=== PATIENT | male | born 1970 | race Two or more races ===

== ENCOUNTER 2024-09-22 10:31 | Outpatient (AMB) | payer OTHER, SELFPAY ==
--- NOTE | 2024-09-22 10:54 | MHC.OFFWIV ---
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 Patient Tobacco Use Status: Current everyday Tobacco user Allergies No Known Allergies [No Known Allergies*] Allergy (Unverified 09/22/24 11:03) Do you need a note to return to daycare/school/sports/work: No HPI HPI Comments History of Present Illness Details History of Present Illness - The patient is a 54-year-old male presenting with a painful right inguinal hernia. - This condition involves a right groin swelling that appeared about two weeks ago without any preceding trauma. - The hernia becomes more prominent upon standing and reduces in size when the patient lies down. - The patient reports intermittent pain, which is exacerbated by standing. - Pt does not have a PCP, hasn't had this issue previously. Physical Exam General: Cooperative, healthy appearing, comfortable, no acute distress and well developed Orientation: Patient oriented x3 Limitations: No limitations Head: Normal to inspection Ears: Hearing grossly normal bilaterally Nose: Normal External nose present Face and sinus: Normal facial exam Eyes: Appearance normal, both eyes and all related structures Neck: Normal visual inspection and Yes full ROM Respiratory: Normal respiratory effort and able to speak in complete sentences. : right inguinal hernia noted, ttp, non reducible fully Skin: No rashes or lesions noted Neuro: Patient oriented x3 Extremities: Normal to inspection PFSH Social History Patient Tobacco Use Status: Current everyday Tobacco user Review of Systems Const All systems reviewed & are unremarkable except as noted in HPI and below Physical Exam Vital Signs: Last Vital Signs Pulse 60 09/22/24 11:02 BP 118/86 09/22/24 11:02 Pulse Ox 98 09/22/24 11:02 Oxygen Delivery Method Room Air 09/22/24 11:02 Assessment & Plan Assessment & Plan (1) Right inguinal hernia: Code(s): K40.90 - Unilateral inguinal hernia, without obstruction or gangrene, not specified as recurrent Plan: VSS, pt well appearing but as right inguinal hernia is progressively more painful and TTP and urgent evaluation of the inguinal hernia is warranted due to the presence of pain and its persistence over two weeks, which may suggest possible incarceration or strangulation. I have advised an immediate visit to the emergency room for further evaluation and imaging, potentially an ultrasound, to assess the necessity of surgical intervention. The patient has been informed about the complications that could arise from a non-reducible hernia, such as blocking intestinal blood supply, and the importance of getting urgent care. It is crucial to confirm the current state of the hernia and rule out any possible emergencies requiring intervention. Called [facility] [place] ED with valdemar, spoke with Marcelino 11:30am Patient was informed and verbally consented to the use of an ambient scribe for clinic note documentation during this visit. Coding Level of Care Code New Pt Level 5 (73788) Diagnoses Right inguinal hernia K40.90
[2024-09-22 11:02] VITALS: BP 118/86; PULSE 60; O2SAT 98
== END 2024-09-22 11:42 | disposition home or self-care (01) ==
PROVIDERS: Visit Provider Physician Assistant
DX: K40.90 Unilateral inguinal hernia, without obstruction or gangrene, not specified as recurrent (principal)

== ENCOUNTER → 2024-09-22 10:31 | Outpatient (BNVA) | payer OTHER, SELFPAY | PROVIDERS: Visit Provider Physician Assistant ==

== ENCOUNTER 2024-09-22 11:53 | Emergency (ER) | payer OTHER, SELFPAY ==
--- NOTE | ~2024-09-22 | CT_ITS ---
CLINICAL HISTORY: Right inguinal hernia pain. incacerated? CT ABDOMEN AND PELVIS WITH CONTRAST Comparison: None Findings: No consolidation or effusion. No acute abnormalities in the solid organs, gallbladder or abdominal aorta. 2 mm nonobstructing right intrarenal calculus. Tiny nonspecific left renal cortical hypodensity. No large calcified gallstone. No bowel obstruction, pneumoperitoneum, or pneumatosis. No ascites. No significant mesenteric or paracolic edema. Appendix is not identified with certainty. No significant inflammatory changes are seen in its expected location. Urinary bladder unremarkable. The prostate appears mildly enlarged. Multiple pelvic phleboliths. No evidence for bowel containing inguinal hernia at the time of scanning. Multiple nonspecific nonenlarged bilateral inguinal lymph nodes. No acute fracture. IMPRESSION: 1. No bowel containing inguinal hernia identified at the time of scanning. 2. No obstructive or acute inflammatory changes in the gastrointestinal and genitourinary tracts. 3. Nonobstructing punctate right intrarenal calculus. 4. Mild prostatomegaly. This document has been electronically signed by: Maricruz Berger DO on 09/22/2024 17:08:30
[2024-09-22 12:02] VITALS: BP 129/72; PULSE 66; RESP 16; TEMP 37; O2SAT 100; BMI 25.1
[2024-09-22 12:32] LABS: MANUAL DIFF FLAG NO
--- NOTE | 2024-09-22 12:32 | ED_ITS ---
HPI - General Adult General Chief complaint: Abdominal Pain Stated complaint: hernia Time Seen by Provider: 09/22/24 16:46 Source: patient Mode of arrival: ambulatory Limitations: no limitations History of Present Illness ED Provider: JESSICA CERVANTES PA-C HPI narrative: 54 year-old male with surgical history significant for appendectomy presents to the ED with complaints of right groin pain x3 weeks. He reports intermittent discomfort to right groin region x3 weeks. Pain is primarily on coughing and standing for prolonged periods of time. He will occasionally notice a blulge with certain movements. 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 Patient denies history of similar symptoms. He was evaluated at today and was advised to come to the ED to r/o incarcerated hernia. No hx of hernias or hernia repair. Denies urinary symptoms, penile discharge/lesions, scrotal pain or swelling, flank pain, abdominal pain, N/V/D, fever, chills, chest pain, SOB. Related Data Previous Rx's ?Medication ?Instructions ?Recorded ibuprofen 600 mg tablet 600 mg PO Q8H PRN pain (scale 09/22/24 score 4-6) #30 tabs Allergies Allergy/AdvReac Type Severity Reaction Status Date / Time No Known Allergies Allergy Verified 09/22/24 12:03 [No Known Allergies*] Review of Systems 2 Review of Systems: Yes all other systems are reviewed and are negative PMFSH Past Medical History Attestation statement: The following information was validated with the patient. Source: old records reviewed and nursing notes reviewed Social History Social History Unable to assess alcohol history related to: Unknown Patient Tobacco Use Status: Current everyday Tobacco user Smoked in Last 30 Days: No Use of substances other than those prescribed or required for medical reasons: Unknown Advance Directives: No Advance Directives Information Provided: No Do you have a plan to hurt others: No Plan Physical Exam ED Vital Signs: Vital Signs - 24 hr 09/22/24 12:02 09/22/24 16:17 09/22/24 17:36 Temperature 98.6 F 97.0 F 97.0 F Pulse Rate 66 55 55 Respiratory Rate 16 18 18 Blood Pressure 129/72 134/71 134/71 Pulse Oximetry 100 98 98 Oxygen Delivery Method Room Air Room Air Room Air BMI result Body Mass Index 25.1 Vitals signs stable. General: Well appearing, in no acute distress. Skin: Warm, dry, intact. No rashes or lesions. Head: Normocephalic, atraumatic. EENT: Hearing is intact b/l. Conjunctiva clear. Sclera is anicteric. Neck: Supple without LAD. Cardiac: Chest wall symmetric. RRR. Lungs: Normal respiratory effort without accessory muscle use. CTA bilaterally. Abdomen: Abdomen soft, nondistended, bowel sounds present in all 4 quadrants. no tenderness to palpation. no rebound or guarding. no inguinal LAD. mildly ttp along right inguinal fold, no obvious mass/ bulge noted at rest or with bearing down. 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 no noted penile lesions or swelling. no discharge from urethral meatus. testicles with normal lie, no noted swelling or erythema. no tenderness. Ext: Upper and lower extremities atraumatic, without tenderness, deformity, swelling or erythema. Neuro: AOx3. Normal speech. Course Course Course Narrative: RME: 54-year-old male sent by primary care provider to rule out incarcerated hernia. Patient states right lower groin pain and swelling for the past 3 week that is worse in the past 3 days on movement. Patient was referred by primary care provider. Patient will be evaluated in the ED. Charge nurse made aware. Labs CT scan ordered Reevaluation(s) Reevaluation #1: 4663 - cbc without leukocytosis or left shift. H&H above transfusion threshold. No electrolyte abnormalities. Renal function WNL. Liver enzymes WNL. UA negative for infection. CT a/p shows no bowel containing inguinal hernia, no inflammatory changes in the GI or tracts, nonobstructing punctate right infrarenal calculus, mild prostatomegaly. Patient treated with Toradol for pain with good effect. > likely small hernia. advised to f/u with general surgery. referral provided. Patient has remained stable throughout ED visit today. Discussed worrisome signs and symptoms and when to return to the ED. All questions answered at this time. Patient is agreeable with disposition and stable for discharge. Medications Administered Discontinued Medications Generic Name Dose Route Start Last Admin Trade Name Freq PRN Reason Stop Dose Admin Iohexol 100 ml 09/22/24 16:48 09/22/24 16:49 Iohexol 350 Mg/Ml 100 Ml Infus..Btl IV 09/22/24 16:49 85 ml ONCE ONE Administration Ketorolac Tromethamine 15 mg 09/22/24 16:56 09/22/24 17:03 Ketorolac Tromethamine 15 Mg/Ml Vial IVPUSH 09/22/24 16:57 15 mg ONCE ONE Administration Medical Decision Making Medical Decision Making [facility] Narrative: 54 year-old male with surgical history significant for appendectomy presents to the ED with complaints of right groin pain x3 weeks. patient is well appearing and in NAD. sitting comfortably on the exam bed. Abdomen soft, nondistended, bowel sounds present in all 4 quadrants. no tenderness to palpation. no rebound or guarding. no inguinal LAD. mildly ttp along right inguinal fold, no obvious mass/ bulge noted at rest or with bearing down. 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 no noted penile lesions or swelling. no discharge from urethral meatus. testicles with normal lie, no noted swelling or erythema. no tenderness. Differential diagnosis consists of inguinal hernia, incarcerated hernia, strangulated hernia, UTI, abscess, muscle strain/sprain. unlikely orchitis, varicocele, epididymitis, STD Labs, UA and CT a/p ordered in triage. Plan to review. toradol ordered for discomfort. will re-evaluate. Differential Diagnosis Differential Diagnoses: The differential diagnosis associated with the presentation includes As above Admission/Observation Not indicated Lab Data [facility] Lab Attestation statement: I reviewed the patient's lab results. As above 09/22/24 12:19 09/22/24 12:19 Labs: Lab Results 09/22/24 Range/Units 12:19 WBC 8.1 (4.8-10.8) X10*3/uL RBC 4.28 L (4.60-5.80) X10*6/uL Hgb 12.9 L (14.0-18.0) g/dl Hct 37.7 L (42.0-52.0) % MCV 88.1 (80.0-98.0) fL MCH 30.1 (27.0-33.0) pg MCHC 34.2 (31.0-36.0) g/dl RDW 12.5 (11.0-16.0) % Plt Count 238 (160-400) X10*3/uL MPV 10.1 (9.4-12.4) fL Immature Gran % (Auto) 0.2 (0.0-0.4) % Neut % (Auto) 53.8 (45-73) % Lymph % (Auto) 31.9 (20-40) % [place] % (Auto) 8.4 (2-11) % Eos % (Auto) 5.3 H (0-4) % Baso % (Auto) 0.4 (0-2) % Lymph # (Auto) 2.6 (1.2-4.9) X10*3/uL [place] # (Auto) 0.7 (0.1-1.2) X10*3/uL Eos # (Auto) 0.4 (0.0-0.4) X10*3/uL Baso # (Auto) 0.0 (0.0-0.2) X10*3/uL Abs Immat Gran (auto) 0.02 (0.00-0.03) X10*3/uL Absolute Neuts (auto) 4.4 (2.0-8.3) x10*3/uL Absolute Nucleated RBC 0.000 (0.0-0.012) X10*3/uL Nucleated RBC % (auto) 0.0 (0.0-0.2) /100WBC Sodium 139 (135-145) mmol/L Potassium 4.9 (3.3-5.1) mmol/L Chloride 104 (96-108) mmol/L Carbon Dioxide 30 H (22-29) mmol/L Anion Gap 10 L (12-20) BUN 9 (9-16) mg/dL Creatinine 0.92 (0.5-1.4) mg/dL Estim Creat Clear Calc 96.6 Estimated GFR > 60 Random Glucose 89 (60-115) mg/dL Lactic Acid 1.4 (0.5-2.0) mmol/L Calcium 9.4 (8.4-10.2) mg/dL Total Bilirubin 0.4 (0.0-1.0) mg/dL AST 29 (5-37) U/L ALT 21 (0-40) U/L Alkaline Phosphatase 73 (39-117) U/L Total Protein 7.4 (6.5-8.0) g/dL Albumin 4.0 (3.5-5.0) g/dL Urine Color Yellow Urine Appearance Clear Urine pH >= 9.0 (5.0-9.0) Ur Specific [place] 1.015 (1.005-1.025) Urine Protein Negative (Neg-Trace) mg/dL Urine Glucose (UA) Negative (Negative) mg/dL Urine Ketones Negative (Negative) mg/dL Urine Blood Negative (Negative) Urine Nitrite Negative (Negative) Ur Leukocyte Esterase Negative (Negative) Independent Interpretation I performed an independent interpretation of an: CT Scan Interpretation: CT abdomen/pelvis with no evidence of bowel containing inguinal hernia Radiology Impression Discussion of test interpretation with radiology: I have reviewed the radiologist's reading. Radiologist Impression: Ordering Physician: Marcelino Feldman Date of Service: 09/22/24 Procedure(s): CT abdomen pelvis w IV con Accession Number(s): [id number] cc: Marcelino Feldman; Physician,None ~ Report Number: [id number]: Total DLP = 460.00 mGy-cm CLINICAL HISTORY: Right inguinal hernia pain. incacerated? CT ABDOMEN AND PELVIS WITH CONTRAST Comparison: None Findings: No consolidation or effusion. No acute abnormalities in the solid organs, gallbladder or abdominal aorta. 2 mm nonobstructing right intrarenal calculus. Tiny nonspecific left renal cortical hypodensity. No large calcified gallstone. No bowel obstruction, pneumoperitoneum, or pneumatosis. No ascites. No significant mesenteric or paracolic edema. Appendix is not identified with certainty. No significant inflammatory changes are seen in its expected location. Urinary bladder unremarkable. The prostate appears mildly enlarged. Multiple pelvic phleboliths. No evidence for bowel containing inguinal hernia at the time of scanning. Multiple nonspecific nonenlarged bilateral inguinal lymph nodes. No acute fracture. IMPRESSION: 1. No bowel containing inguinal hernia identified at the time of scanning. 2. No obstructive or acute inflammatory changes in the gastrointestinal and genitourinary tracts. 3. Nonobstructing punctate right intrarenal calculus. 4. Mild prostatomegaly. This document has been electronically signed by: Maricruz Berger DO on 09/22/2024 17:08:30 External Record Review External record reviewed: Inpatient record Prescription Management I considered prescription management with: Pain Medication (ibuprofen) Social Determinants Patient?s care significantly limited by Social Determinants of Health including: Other Social Determinant of Health Critical Care Time Critical Care Time Critical Care Time: No Discharge Plan Discharge Clinical Impression: Right inguinal hernia Patient Disposition: Home, Self-Care Instructions: Inguinal Hernia (ED) Additional Instructions: You were evaluated in the ED today for right groin pain. Your exam is concerning for possible inguinal hernia. Your blood work is reassuring. Your urine does not demonstrate infection. The CT scan of your abdomen does not demonstrate any bowel containing hernia. You may take anti-inflammatory such as Motrin or Aleve. Please follow up with general surgery. You have been provided with a referral. Call them to establish care. They will not call you. Return with any new or worsening symptoms. In the case of an emergency call 911. Prescriptions: New ibuprofen 600 mg tablet 600 mg PO Q8H PRN (Reason: pain (scale score 4-6)) Qty: 30 0RF Referrals: [facility] [facility] [Provider Group] - 5 days (inguinal hernia) Physician,None [Primary Care Provider] - Interventions: ED Discharge Assessment Last Done: 09/22/24 17:36 Discharge Date/Time: 09/22/24 17:49 Print Language: Tongan
[2024-09-22 12:34] LABS: Basophils Percent Auto 0.4 % (0-2); Eosinophils Absolute Auto 0.4 X10*3/uL (0.0-0.4); Eosinophils Percent Auto 5.3 % (0-4); Hematocrit 37.7 % (42.0-52.0); Hemoglobin 12.9 g/dl (14.0-18.0); Imm Gran Abs Auto 0.02 X10*3/uL (0.00-0.03); Imm Gran Pct Auto 0.2 % (0.0-0.4); Lymphocytes Absolute Auto 2.6 X10*3/uL (1.2-4.9); Lymphocytes Percent Auto 31.9 % (20-40); Mean Corpuscular HGB Conc 34.2 g/dl (31.0-36.0); Mean Corpuscular Hemoglobin 30.1 pg (27.0-33.0); Mean Corpuscular Volume 88.1 fL (80.0-98.0); Mean Platelet Volume 10.1 fL (9.4-12.4); Monocytes Absolute Auto 0.7 X10*3/uL (0.1-1.2); Monocytes Percent Auto 8.4 % (2-11); Neutrophils Absolute Auto 4.4 x10*3/uL (2.0-8.3); Neutrophils Percent Auto 53.8 % (45-73); Platelet Count 238 X10*3/uL (160-400); Red Blood Count 4.28 X10*6/uL (4.60-5.80); Red Cell Distribution Width 12.5 % (11.0-16.0); White Blood Count 8.1 X10*3/uL (4.8-10.8)
[2024-09-22 12:35] LABS: Appearance Urine Clear; Color Urine Yellow; Glucose Urine UA Negative (Negative); Leukocyte Esterase Urine Negative (Negative); Nitrite Urine Negative (Negative); PH >= 9.0 (5.0-9.0); Specific Gravity - Urine 1.015 (1.005-1.025); Urine Blood Negative (Negative); Urine Ketones Negative (Negative); Urine Protein Negative (Neg-Trace)
[2024-09-22 12:49] LABS: Lactic Acid 1.4 mmol/L (0.5-2.0)
[2024-09-22 12:51] LABS: Alanine Aminotransferase 21 U/L (0-40); Alkaline Phosphatase 73 U/L (39-117); Anion Gap 10 (12-20); Aspartate Amino Transferase 29 U/L (5-37); Bilirubin Total 0.4 mg/dL (0.0-1.0); Blood Urea Nitrogen 9 mg/dL (9-16); Calcium 9.4 mg/dL (8.4-10.2); Carbon Dioxide 30 mmol/L (22-29); Chloride 104 mmol/L (96-108); Creatinine Clr Calc Pharmacy 96.6; Estimated Glomerular Filt Rate > 60; Glucose Random 89 mg/dL (60-115); Potassium 4.9 mmol/L (3.3-5.1); Sodium 139 mmol/L (135-145); Total Protein 7.4 g/dL (6.5-8.0)
[2024-09-22 16:17] VITALS: BP 134/71; PULSE 55; RESP 18; TEMP 36.1; O2SAT 98
[2024-09-22] MEDS: iohexoL 350 MG/ML 100 ML INFUS..BTL IV (16:49)
[2024-09-22] MEDS: Ketorolac Tromethamine 15 MG/ML VIAL IVPUSH (17:03)
[2024-09-22 17:36] VITALS: BP 134/71; PULSE 55; RESP 18; TEMP 36.1; O2SAT 98
== END 2024-09-22 17:49 | disposition home or self-care (01) ==
PROVIDERS: Physician Assistant; Emergency Provider Emergency Medicine
DX: K40.90 Unilateral inguinal hernia, without obstruction or gangrene, not specified as recurrent (principal); R10.31 Right lower quadrant pain; Z79.899 Other long term (current) drug therapy
CPT/HCPCS: 36415; 74177; 80053; 81003; 83605; 85025; 96374; 99284; J1885; Q9967

== ENCOUNTER → 2024-09-22 12:03 | Outpatient (BNV) | payer OTHER, SELFPAY | PROVIDERS: Emergency Provider Emergency Medicine; Visit Provider Radiology Diagnostic Radiology | DX: N20.0 Calculus of kidney (principal) | CPT/HCPCS: 74177 ==

== ENCOUNTER 2024-10-19 14:20 | Outpatient (AMB) | payer OTHER, SELFPAY ==
--- NOTE | 2024-10-19 14:30 | A.OFFPC_ITS ---
Vital Signs 10/19/24 14:32 Height 5 ft 9.29 in Weight 175 lb 8 oz BMI 25.7 BP 100/60 Blood Pressure Location Lt brachial Position Sitting Pulse 74 Pulse Source Pulse Oximeter Temp 97.1 F Temp Source Temporal Artery Scan Pulse Oximetry (%) 98 Oxygen Delivery Method Room Air Intake Visit Reasons: establish care Intake Note: Patient is a new patient here to establish care for Hernia. Transferring care from unknown. Medical records have not been requested and have not received. Online Content Coordinator Required: No Lead Sustainability Specialist: Not Required per policy Accompanied by: Self / Same As Patient Allergies No Known Allergies [No Known Allergies*] Allergy (Verified 10/19/24 14:46) Medication List - Last Reconciled 10/19/24 by YUNIER Vang ibuprofen 600 mg PO Q8H PRN Tobacco use date assessed: 10/19/24 Dental Screening Dental Screen Date: 10/19/24 Did you have a dental visit in the last 12 months?: No Did you have a dental problem in the last 6 months where you did not have access to dental care?: No Was dental information given to patient?: Patient declined HPI establish care HPI Details Previous PCP: He does not need Last visit:n/a Last PE:n/a Specialist:General surgery OBGYN:n/a Past medical history: Hemorrhoids, heart burn, right groin hernia, kidney stones Past surgical history: appendix removal at a young age Medications: ibuprofen 600mg Family HX: mother of cancer in her 40s, started in her breast then metastasize to head, sister has htn Problem: The patient is a 54-year-old male presenting with a right inguinal hernia. He reports the hernia as being present for several weeks, with burning sensations noted earlier in the day and persisting for weeks. A CT scan indicated a slightly swollen prostate, and he has been referred to general surgery for further evaluation. The patient has a history of hemorrhoids, managed previously but still problematic, occasionally requiring manual reduction. He experiences constipation, often needing extended time for bowel movements, linked to inadequate water and fiber intake. The patient has a past surgical history of appendectomy and has experienced kidney stones. There is a familial history of cancer, and he mentions that his sister has elevated blood pressure. The patient lacks a primary care physician and seeks further management. 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 1. Little interest or pleasure in doing things: not at all 2. Feeling down, depressed, or hopeless: not at all 3. Trouble falling or staying asleep, or sleeping too much: not at all 4. Feeling tired or having little energy: not at all 5. Poor appetite or overeating: not at all 6. Feeling bad about yourself - or that you are a failure or have let yourself or your family down: not at all 7. Trouble concentrating on things, such as reading the newspaper or watching television: not at all 8. Moving or speaking so slowly that other people could have noticed. Or the opposite - being so fidgety or restless that you have been moving around a lot more than usual: not at all 9. Thoughts that you would be better off or of hurting yourself in some way: not at all Total score: 0 Depression Screening Interpretation: Negative Depression Screening Done: Yes 01854 - PHQ-9 Billing: Yes Source: Developed by Drs. Fredy Talamantes, Roberta Augustine, Ludwin Catherine and colleagues, with an educational jose from [employer]. Thrive Questionnaire Date Thrive assessed: 10/19/24 I am a: Patient What is your living situation today?: I have a steady place to live Within the past 12 months, did the food you bought not last and you didn't have the money to get more?: Never true Within the past 12 months, did you worry whether your food would run out before you got money to buy more?: Never true Do you have trouble paying for medicines?: No Do you have trouble getting transportation to medical appointments?: No Do you have trouble paying your heating and electricity bill?: No Do you have trouble taking care of your child, family member or friend?: No Do you have trouble with day-to-day activities such as bathing, preparing meals, shopping, managing finances, etc.?: No Are you currently unemployed and looking for a job?: No Are you interested in more education?: No Please select the resources that you would like help with: None Currently or been in a relationship where the following occur: No concerns reported THRIVE Score: 0 AUDIT C Alcohol Use Questionnaire (AUDIT-C) 1. How often do you have a drink containing alcohol?: Monthly or less 2. How many drinks containing alcohol do you have on a typical day when you are drinking?: 3 or 4 3. How often do you have six or more drinks on one occasion?: Never Total Score: 2 NATHAN-7 AMB Questionnaire NATHAN-7 Date NATHAN - 7 assessed: 10/19/24 Feeling nervous, anxious, or on edge: 0 = Not at all Not being able to stop or control worryin = Not at all Worrying too much about different things: 0 = Not at all Trouble relaxin = Not at all Being so restless that it is hard to sit still: 0 = Not at all Becoming easily annoyed or irritable: 0 = Not at all Feeling afraid as if something awful might happen: 0 = Not at all Total NATHAN-7 score (0-4 normal; 5-9 mild; 10-14 moderate; 15-21 severe): 0 Source: Developed by Drs. Fredy Talamantes, Roberta Augustine, Ludwin Catherine and colleagues, with an educational jose from [employer]. NATHAN-7 Assessment Billing NATHAN-7 Assessment Tool: NATHAN-7 Assessment 04281 Review of Systems Const Denies headache(s) Eyes Denies loss of vision ENT Denies vertigo, Denies dizziness, Denies headache(s) and Denies sore throat Card Denies chest pain, Denies leg edema and Denies lightheadedness Resp Denies cough, Denies hemoptysis and Denies wheezing GI Denies abdominal pain, Denies melena, Reports constipation, Denies diarrhea and Denies vomiting Denies dysuria, Denies urinary frequency, Denies urinary urgency and Reports other (Right groin hernia) Musc Denies arthralgias, Denies joint swelling, Denies numbness, Reports radiating pain into limb (From right groin into inner thigh) and Denies tingling Neuro Denies Abnormal speech present, Denies behavioral changes, Denies vertigo, Denies dizziness, Denies headache(s), Denies loss of vision, Denies memory loss, Denies numbness and Denies tingling Psych Denies anxiety, Denies behavioral changes, Denies depression, Denies memory loss and Denies panic attacks Ron/Lymph Denies easy bleeding and Denies easy bruising Aller/Immun Denies wheezing Physical exam (Primary Care) Vital Signs: Last Vital Signs Temp 97.1 F 10/19/24 14:32 Pulse 74 10/19/24 14:32 BP 100/60 10/19/24 14:32 Pulse Ox 98 10/19/24 14:32 Oxygen Delivery Method Room Air 10/19/24 14:32 BMI result Body Mass Index 25.7 Tobacco/Smoking Status: Tobacco use Status Tobacco use date assessed 10/19/24 10/19/24 14:39 Patient Tobacco Use Status Never used Tobacco 10/19/24 14:40 Tobacco use type 10/19/24 14:39 e-Cigarette/Vaping Use Never Used 10/19/24 14:40 PHQ-9: PHQ-9 Score PHQ-9: Total score 0 10/19/24 14:48 Depression Screening Interpretation: Negative Thrive Assessment: Date of Thrive Assessment Date Thrive assessed 10/19/24 10/19/24 14:39 Currently or been in a relationship where the following occur: No concerns reported Const General: healthy appearing, no acute distress, alert and awake Nutritional Appearance: well nourished Orientation/consciousness: oriented to person, oriented to place and oriented to time HENMT Ears: TM's normal bilaterally General nose exam: Normal nasal mucous membranes and turbinates present Eyes Conjunctivae: conjunctivae normal Sclerae: sclerae normal Pupils: Equal, round and reactive pupils present Neck Neck: Yes no lymphadenopathy and Yes no JVD Thyroid: Thyroid normal Carotids: no bruits Resp Effort & Inspection: normal respiratory effort and not tachypneic Auscultation: no crackles, no rales, no rhonchi and no wheezes Cardio Rate: regular rate Rhythm: regular rhythm Heart sounds: no murmurs and normal S1 and S2 GI Palpation (GI): Soft to palpation, nontender, no hepatomegaly and no splenomegaly Auscultation: normal bowel sounds General: Yes no CVA tenderness Scrotum: inguinal hernia on the right Back/Spine/Pelvis Back: no CVA tenderness Skin General skin exam: no rashes or lesions noted and dry skin Neuro General: oriented to person, oriented to place and oriented to time Cranial nerves: Yes Equal, round and reactive pupils present Speech: No Abnormal speech present Gait exam (Neuro): Normal gait present Motor exam (neuro): no tremor noted Extrem Right upper extremity: full ROM Left upper extremity: full ROM Right lower extremity: full ROM; no edema Left lower extremity: full ROM; no edema Psych Mental Status: mental status grossly normal Speech and movement: Normal speech and movement present Affect: normal affect Attitude: cooperative Thought process: Normal thought process present Coding Level of Care Code New Pt Level 4 (26670) Diagnoses Preoperative clearance Z01.818 Hemorrhoids, unspecified hemorrhoid type K64.9 Hemorrhoid type: unspecified Heartburn R12 Right inguinal hernia K40.90 Constipation, unspecified constipation type K59.00 Constipation type: unspecified constipation type Additional Codes PHQ-9 - 08076 - PHQ-9 Billing: Yes ([id number]) NATHAN-7 Assessment Billing - NATHAN-7 Assessment Tool: NATHAN-7 Assessment 91384 ([id number]) Time Spent (min) 41 Assessment & Plan Assessment & Plan (1) Preoperative clearance: Code(s): Z01.818 - Encounter for other preprocedural examination Category: Medical Plan: The patient is in need of clearance for right groin hernia. Will order labs and ekg to further evaluate the patient status. Explained to the patient that if his ekg is normal and his labs are fairly wnl normal limits, he could be cleared for his hernia surgery. (2) Hemorrhoids: Code(s): K64.9 - Unspecified hemorrhoids Category: Medical Qualifiers: Hemorrhoid type: unspecified Qualified Code(s): K64.9 - Unspecified hemorrhoids Plan: Recurrent, has been treated conservatively by manually pushing back the hemorrhoid into the rectum and applying preparation H cream for discomfort. Encouraged increasing fluids and dietary fiber (3) Heartburn: Code(s): R12 - Heartburn Category: Medical Plan: Do not eat meals or drink carbonated beverages within 3 hr of bedtime Decrease the amount of fried, fatty, and spicy foods to decrease gastric acid p roduction Raise the head of the bed using 4 to 6-inch blocks, especially if nocturnal symptoms are present Lose weight if indicated; avoid tight-fitting clothing, especially around the waist Avoid foods that relax the Lower esophageal sphincter (chocolate, peppermint, high-fat foods etc.,) (4) Right inguinal hernia: Code(s): K40.90 - Unilateral inguinal hernia, without obstruction or gangrene, not specified as recurrent Category: Medical Plan: Right groin reducible lump pain radiating in right inner thigh. No increase in pain area and the swelling has not gotten bigger, per patient. Awaiting surgical intervention. Reinforced weight limit. (5) Constipation: Code(s): K59.00 - Constipation, unspecified Category: Medical Qualifiers: Constipation type: unspecified constipation type Qualified Code(s): K59.00 - Constipation, unspecified Plan Increase fiber in diet (fruits/vegetables 4-5 servings daily) Increase fluid intake and decrease caffeine/energy drinks (may cause mild dehydration) Encouraged regular exercise (e.g., biking, walking, running) Orders: Orders Vitamin D 25-OH Total 10/19/24 K40.90 - Unilateral inguinal hernia, without obstruction or gangrene, not specified as recurrent, Z01.818 - Encounter for other preprocedural examination Vitamin B12 and Folate 10/19/24 K40.90 - Unilateral inguinal hernia, without obstruction or gangrene, not specified as recurrent, Z01.818 - Encounter for other preprocedural examination Prothrombin Time INR 10/19/24 K40.90 - Unilateral inguinal hernia, without obstruction or gangrene, not specified as recurrent, Z01.818 - Encounter for other preprocedural examination Lipid Panel 10/19/24 K40.90 - Unilateral inguinal hernia, without obstruction or gangrene, not specified as recurrent, Z01.818 - Encounter for other preprocedural examination Hemoglobin A1c 10/19/24 K40.90 - Unilateral inguinal hernia, without obstruction or gangrene, not specified as recurrent, Z01.818 - Encounter for other preprocedural examination ECG 12 lead EKG 10/19/24 Z00.00 - Encounter for general adult medical examination without abnormal findings, Z01.818 - Encounter for other preprocedural examination
[2024-10-19 14:32] VITALS: BP 100/60; PULSE 74; TEMP 36.2; O2SAT 98; BMI 25.7
== END 2024-10-19 15:30 | disposition home or self-care (01) ==
DX: Z01.818 Encounter for other preprocedural examination (principal); K64.9 Unspecified hemorrhoids; R12 Heartburn; K40.90 Unilateral inguinal hernia, without obstruction or gangrene, not specified as recurrent; K59.00 Constipation, unspecified

== ENCOUNTER → 2024-10-19 14:20 | Outpatient (BNVA) | payer OTHER, SELFPAY | DX: Z01.818 Encounter for other preprocedural examination (principal); K64.9 Unspecified hemorrhoids; R12 Heartburn; K40.90 Unilateral inguinal hernia, without obstruction or gangrene, not specified as recurrent; K59.00 Constipation, unspecified | CPT/HCPCS: 96127 ==

== ENCOUNTER 2024-10-27 10:21 | Outpatient (AMB) | payer OTHER, SELFPAY ==
--- NOTE | 2024-10-27 10:25 | MHC.OFFVIS ---
Vital Signs 10/27/24 10:26 Height 5 ft 9.29 in Weight 173 lb BMI 25.3 BP 134/74 Blood Pressure Location Rt brachial Position Sitting Pulse 56 Intake Visit Reasons: Hernia Intake Note: [place] [facility] for Rt inguinal hernia. Present for 1m. Patient c/o: on and off pain. Ibuprofen helps. Abd pelvis CT: 09-22-2024 [employer] Required: No Accompanied by: Self / Same As Patient Allergies No Known Allergies [No Known Allergies*] Allergy (Verified 10/27/24 10:26) Medication List - Last Reconciled 10/27/24 by Edouard Velázquez MD ibuprofen 600 mg PO Q8H PRN HPI HPI Hernia: Details: 54-year-old male referred for a right inguinal hernia. He says that he has not noticed this reducible mass in his right groin for over a month now. He says that sometimes this that is ?big?. He says that this causes significant discomfort periodically. He had gone to the emergency room at some point and referred to me He denies GI complaints. He says he is healthy overall. 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 Cognitive needs: No Hearing needs: No Vision needs: Yes (Reading Glasses) Review of Systems Const Denies chills and Denies fever(s) Card Denies chest pain, Denies dyspnea and Denies dyspnea on exertion Resp Denies cough, Denies dyspnea and Denies dyspnea on exertion GI Denies hematochezia and Denies change in bowel habits Denies hematuria and Denies difficulty urinating Musc Denies back pain and Denies limited range of motion Neuro Denies focal weakness and Denies convulsions Psych Denies depression and Denies mood swings Physical Exam Const General: comfortable and no acute distress Orientation/consciousness: patient oriented x3 Neck Neck: Yes no lymphadenopathy Resp Auscultation: clear to auscultation bilaterally Cardio Rhythm: regular rhythm GI Other: Right inguinal hernia, reducible Palpation (GI): Soft to palpation, nontender and no guarding Neuro General: patient oriented x3 Assessment & Plan Assessment & Plan (1) Right inguinal hernia: Code(s): K40.90 - Unilateral inguinal hernia, without obstruction or gangrene, not specified as recurrent Category: Medical Plan He has had this reducible right inguinal hernia with symptoms. I reviewed with him the technique of repair with possible mesh placement. I explained the risks including but not limited to bleeding, infections, injury to other organs including bowel, recurrence, postop pain, as well as the benefits and alternatives I also explained to him what to expect postoperatively. He understands and wants to proceed. Coding Level of Care Code New Pt Level 3 (52329) Diagnoses Right inguinal hernia K40.90
[2024-10-27 10:26] VITALS: BP 134/74; PULSE 56; BMI 25.3
== END 2024-10-27 10:40 | disposition home or self-care (01) ==
LOC: HO.HGS 10:22
PROVIDERS: Visit Provider Surgery
DX: K40.90 Unilateral inguinal hernia, without obstruction or gangrene, not specified as recurrent (principal)
CPT/HCPCS: 99203

== ENCOUNTER 2024-10-31 10:50 | Emergency (ER) | payer OTHER, SELFPAY ==
--- NOTE | ~2024-10-31 | US_ITS ---
EXAMINATION: US SCROTUM HISTORY: known R inguinal hernia, scrotal pain. COMPARISON: There are no prior studies available for comparison. FINDINGS: Real-time grayscale ultrasound imaging of the scrotum was performed. RIGHT TESTICLE: The right testis measures 5.1 x 3.6 x 3.3 cm and demonstrates normal homogeneous echotexture. No masses are seen. The right testis demonstrates normal color Doppler flow. RIGHT EPIDIDYMIS: Normal in size, shape, and vascularity. LEFT TESTICLE: The left testis measures 4.6 x 2.4 x 3.6 cm and demonstrates normal homogeneous echotexture. No masses are seen. The left testis demonstrates normal color Doppler flow. LEFT EPIDIDYMIS: Normal in size, shape, and vascularity. There is a 2 mm epididymal head cyst. VARICOCELE: There are prominent vessels in the left hemiscrotum measuring 2-3 mm in diameter. HYDROCELE: There are small bilateral hydroceles, right greater than left. OTHER COMMENTS: None. US/US scrotum IMPRESSION: Small bilateral hydroceles, right greater than left. Prominence vessels in the left hemiscrotum. Electronically signed by: Fredy Williamson MD 10/31/2024 01:49 PM EDT
[2024-10-31 11:02] VITALS: BP 116/74; PULSE 59; RESP 19; TEMP 36.6; O2SAT 98; BMI 25.3
--- NOTE | 2024-10-31 11:03 | ED_ITS ---
HPI - General Adult General Chief complaint: Abdominal Pain Stated complaint: Hernia Pain Time Seen by Provider: 10/31/24 11:32 Source: patient, RN notes reviewed and old records reviewed Mode of arrival: ambulatory Limitations: no limitations History of Present Illness ED Provider: Lizzie HPI narrative: Patient is a 54-year-old male with history of appendectomy, kidney stones presenting to the emergency department with complaint of right groin pain with known inguinal hernia. Saw Dr. Velázquez on 10/27 and decided to proceed with hernia repair but does not have surgery date scheduled yet. Denies difficulty with urinating or bowel movements, denies fevers. Pain worsens while at work. Reduces when laying supine. MD complaint: groin pain Onset (ago): month(s) Related Data Previous Rx's ?Medication ?Instructions ?Recorded ibuprofen 600 mg tablet 600 mg PO Q8H PRN pain (scale 09/22/24 score 4-6) #30 tabs Allergies Allergy/AdvReac Type Severity Reaction Status Date / Time No Known Allergies Allergy Verified 10/31/24 11:03 [No Known Allergies*] PMFSH Past Medical History Medical History Kidney stones Heartburn Hemorrhoids Surgical History History of appendectomy Family History Family History Mother Cancer Sister HTN (hypertension) Social History Social History Housing: House Alcohol intake: current Alcohol intake frequency: a few times a month Patient Tobacco Use Status: Never used Tobacco e-Cigarette/Vaping Use: Never Used Second Hand Smoke Exposure: Yes Substance Use Type: Marijuana Advance Directives: No Advance Directives Information Provided: Yes Do you have a plan to hurt others: No Plan service: No Current occupational status: employed 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 He was diagnosed with an inguinal hernia. He is waiting for corrective treatment with Dr Velázquez. Plan for labs including lactic acid Medical Decision Making Medical Decision Making [facility] Narrative: Patient is a 54-year-old male with history of appendectomy, kidney stones presenting to the emergency department with complaint of right groin pain with known inguinal hernia. On exam patient is awake, A+Ox3, VS WNL, afebrile, normal neurological exam without focal deficits, physical exam findings as above. Given reported symptoms and physical exam findings, initial differential includes but is not limited to inguinal hernia, doubt stangulation/incarceration. Labs unremarkable, normal lactic. No evidence of infection on UA. U/S scrotum notable for bilateral hydrocele. My interpretation is in agreement with the radiologist's interpretation. Results discussed with patient and all questions answered. Hernia is easily reducible when patient is supine. Case discussed with Dr. Velázquez who is aware patient presented to the ED for ongoing pain related to his hernia. Advised patient to add Tylenol in addition to ibuprofen as needed for pain. Strict return precautions discussed at bedside. Patient verbalized understanding of and agreement with plan. Differential Diagnosis Differential Diagnoses: The differential diagnosis associated with the presentation includes As per [facility] Admission/Observation Consideration of admission/observation: Escalation of care including admission/observation considered Patient would have been admitted to the hospital had their work up had any findings where hospital admission was appropriate and their clinical presentation warranted hospital admission. Consult Healthcare Provider Management of the patient was discussed with: Pressfitter (Dr. Velázquez) Lab Data [facility] Lab Attestation statement: I reviewed the patient's lab results. as per [facility] 10/31/24 11:29 10/31/24 11:29 Labs: Lab Results 10/31/24 Range/Units 11:29 WBC 7.4 (4.8-10.8) X10*3/uL RBC 4.09 L (4.60-5.80) X10*6/uL Hgb 12.4 L (14.0-18.0) g/dl Hct 35.8 L (42.0-52.0) % MCV 87.5 (80.0-98.0) fL MCH 30.3 (27.0-33.0) pg MCHC 34.6 (31.0-36.0) g/dl RDW 12.4 (11.0-16.0) % Plt Count 203 (160-400) X10*3/uL MPV 10.0 (9.4-12.4) fL Immature Gran % (Auto) 0.1 (0.0-0.4) % Neut % (Auto) 63.2 (45-73) % Lymph % (Auto) 24.6 (20-40) % Page % (Auto) 7.5 (2-11) % Eos % (Auto) 4.2 H (0-4) % Baso % (Auto) 0.4 (0-2) % Lymph # (Auto) 1.8 (1.2-4.9) X10*3/uL Page # (Auto) 0.6 (0.1-1.2) X10*3/uL Eos # (Auto) 0.3 (0.0-0.4) X10*3/uL Baso # (Auto) 0.0 (0.0-0.2) X10*3/uL Abs Immat Gran (auto) 0.01 (0.00-0.03) X10*3/uL Absolute Neuts (auto) 4.7 (2.0-8.3) x10*3/uL Absolute Nucleated RBC 0.000 (0.0-0.012) X10*3/uL Nucleated RBC % (auto) 0.0 (0.0-0.2) /100WBC Sodium 140 (135-145) mmol/L Potassium 4.7 (3.3-5.1) mmol/L Chloride 107 (96-108) mmol/L Carbon Dioxide 30 H (22-29) mmol/L Anion Gap 8 L (12-20) BUN 13 (9-16) mg/dL Creatinine 1.01 (0.5-1.4) mg/dL Estim Creat Clear Calc 85.3 Estimated GFR > 60 Random Glucose 84 (60-115) mg/dL Lactic Acid 0.7 (0.5-2.0) mmol/L Calcium 9.2 (8.4-10.2) mg/dL Total Bilirubin 0.4 (0.0-1.0) mg/dL AST 23 (5-37) U/L ALT 13 (0-40) U/L Alkaline Phosphatase 65 (39-117) U/L Total Protein 6.9 (6.5-8.0) g/dL Albumin 4.1 (3.5-5.0) g/dL Lipase 18 (8-78) U/L Urine Color Yellow Urine Appearance Cloudy Urine pH 7.5 (5.0-9.0) Ur Specific [place] 1.025 (1.005-1.025) Urine Protein Negative (Neg-Trace) mg/dL Urine Glucose (UA) Negative (Negative) mg/dL Urine Ketones Negative (Negative) mg/dL Urine Blood Negative (Negative) Urine Nitrite Negative (Negative) Ur Leukocyte Esterase Negative (Negative) Urine RBC 0-2 (0-2) /HPF Urine WBC 0-5 (0-5) /HPF Ur Squamous Epith Cells 0-2 (0-2) /HPF Urine Bacteria None Seen (None Seen) Hyaline Casts 0-2 (0-2) /LPF Independent Interpretation I performed an independent interpretation of an: Ultrasound Interpretation: Ultrasound of scrotum shows bilateral hydrocele right greater than left. Radiology Impression Discussion of test interpretation with radiology: I have reviewed the radiologist's reading. Radiologist Impression: US/US scrotum IMPRESSION: Small bilateral hydroceles, right greater than left. Prominence vessels in the left hemiscrotum. External Record Review External record reviewed: Inpatient record, Office record and Outpatient record Discharge Plan Discharge Clinical Impression: Bilateral hydrocele, Hernia, inguinal, right Patient Disposition: Home, Self-Care Instructions: Inguinal Hernia (ED), Inguinal Hernia Repair (DC) Additional Instructions: You were evaluated in the emergency department today for right groin pain. Your hernia does not appear to be incarcerated or strangulated. Please follow up with Dr. Velázquez to discuss surgery date. Return to the emergency department if you develop worsening pain, nausea and vomiting, fever, difficulty with urination or bowel movements or any other new or concerning symptoms. Prescriptions: No Action ibuprofen 600 mg tablet 600 mg PO Q8H PRN (Reason: pain (scale score 4-6)) Qty: 30 0RF Print Language: German
[2024-10-31 11:36] LABS: MANUAL DIFF FLAG NO
[2024-10-31 11:38] LABS: Basophils Percent Auto 0.4 % (0-2); Eosinophils Absolute Auto 0.3 X10*3/uL (0.0-0.4); Eosinophils Percent Auto 4.2 % (0-4); Hematocrit 35.8 % (42.0-52.0); Hemoglobin 12.4 g/dl (14.0-18.0); Imm Gran Abs Auto 0.01 X10*3/uL (0.00-0.03); Imm Gran Pct Auto 0.1 % (0.0-0.4); Lymphocytes Absolute Auto 1.8 X10*3/uL (1.2-4.9); Lymphocytes Percent Auto 24.6 % (20-40); Mean Corpuscular HGB Conc 34.6 g/dl (31.0-36.0); Mean Corpuscular Hemoglobin 30.3 pg (27.0-33.0); Mean Corpuscular Volume 87.5 fL (80.0-98.0); Monocytes Absolute Auto 0.6 X10*3/uL (0.1-1.2); Monocytes Percent Auto 7.5 % (2-11); Neutrophils Absolute Auto 4.7 x10*3/uL (2.0-8.3); Neutrophils Percent Auto 63.2 % (45-73); Platelet Count 203 X10*3/uL (160-400); Red Blood Count 4.09 X10*6/uL (4.60-5.80); Red Cell Distribution Width 12.4 % (11.0-16.0); White Blood Count 7.4 X10*3/uL (4.8-10.8)
[2024-10-31 11:39] LABS: Appearance Urine Cloudy; Color Urine Yellow; Glucose Urine UA Negative (Negative); Leukocyte Esterase Urine Negative (Negative); Nitrite Urine Negative (Negative); PH 7.5 (5.0-9.0); Specific Gravity - Urine 1.025 (1.005-1.025); Urine Blood Negative (Negative); Urine Ketones Negative (Negative); Urine Protein Negative (Neg-Trace)
[2024-10-31 11:45] VITALS: BP 122/75; PULSE 55; RESP 16; O2SAT 99
[2024-10-31 11:48] LABS: Bacteria Urine None Seen (None Seen); Hyaline Casts Urine 0-2 /LPF (0-2); RBC Urine 0-2 /HPF (0-2); Squamous Epithelial Cell Urine 0-2 /HPF (0-2); WBC Urine 0-5 /HPF (0-5)
[2024-10-31 11:52] LABS: Lactic Acid 0.7 mmol/L (0.5-2.0)
[2024-10-31 11:53] LABS: Alanine Aminotransferase 13 U/L (0-40); Albumin Level 4.1 g/dL (3.5-5.0); Alkaline Phosphatase 65 U/L (39-117); Anion Gap 8 (12-20); Aspartate Amino Transferase 23 U/L (5-37); Bilirubin Total 0.4 mg/dL (0.0-1.0); Blood Urea Nitrogen 13 mg/dL (9-16); Calcium 9.2 mg/dL (8.4-10.2); Carbon Dioxide 30 mmol/L (22-29); Chloride 107 mmol/L (96-108); Creatinine Clr Calc Pharmacy 85.3; Estimated Glomerular Filt Rate > 60; Glucose Random 84 mg/dL (60-115); Lipase 18 U/L (8-78); Potassium 4.7 mmol/L (3.3-5.1); Sodium 140 mmol/L (135-145); Total Protein 6.9 g/dL (6.5-8.0)
[2024-10-31 14:53] VITALS: BP 148/77; PULSE 52; RESP 16; TEMP 36.4; O2SAT 100
[2024-10-31 15:16] VITALS: BP 148/77; PULSE 52; RESP 16; TEMP 36.4; O2SAT 100
== END 2024-10-31 15:16 | disposition home or self-care (01) ==
PROVIDERS: Physician Assistant; Emergency Provider Emergency Medicine
DX: N43.3 Hydrocele, unspecified (principal); K40.90 Unilateral inguinal hernia, without obstruction or gangrene, not specified as recurrent; R10.2 Pelvic and perineal pain; Z79.899 Other long term (current) drug therapy
CPT/HCPCS: 36415; 76870; 80053; 81001; 83605; 83690; 85025; 99284

== ENCOUNTER → 2024-10-31 11:46 | Outpatient (BNV) | payer OTHER, SELFPAY | PROVIDERS: Emergency Provider Emergency Medicine; Visit Provider Radiology Diagnostic Radiology | DX: N43.3 Hydrocele, unspecified (principal) | CPT/HCPCS: 76870; 93975 ==

== ENCOUNTER → 2024-11-16 14:40 | Outpatient (REF) | payer OTHER, SELFPAY ==
--- NOTE | 2024-11-16 14:43 | ECG_ITS ---
Test Reason : PREOP Blood Pressure : */* mmHG Vent. Rate : 67 BPM Atrial Rate : 67 BPM P-R Int : 162 ms QRS Dur : 86 ms QT Int : 364 ms P-R-T Axes : 72 56 51 degrees QTcB Int : 384 ms Normal sinus rhythm with sinus arrhythmia Normal ECG No previous ECGs available Referred By: Joaquín Michelle Electronically Signed By: SWATHI CHAMBERS
== END ==
LOC: HO.CARD 14:40
DX: Z01.818 Encounter for other preprocedural examination (principal)
CPT/HCPCS: 93005

== ENCOUNTER → 2024-11-16 14:43 | Outpatient (BNV) | payer OTHER, SELFPAY | PROVIDERS: Visit Provider Internal Medicine | DX: Z01.810 Encounter for preprocedural cardiovascular examination (principal) | CPT/HCPCS: 93010 ==

== ENCOUNTER 2024-12-13 09:28 | Day surgery (SDC) | payer OTHER, SELFPAY ==
[2024-12-09 12:46] VITALS: BMI 25.5
--- NOTE | 2024-12-12 12:42 | HO.ANESPROP2 ---
Documented by User: Florence Barnes NP 12/12/24 12:44 HPI - Anesthesia Eval Consult details Narrative: 54 yr old male for right inguinal hernia reducible with mesh PMFSH Active Problems Active Problems: All Active Problems Constipation (Acute) Annual physical exam (Acute) Preoperative clearance (Acute) Right inguinal hernia (Acute) Heartburn (Acute) Hemorrhoids (Acute) Past Medical History Medical History Kidney stones Heartburn Hemorrhoids Family History Family History Mother Cancer Sister HTN (hypertension) Surgical History Surgical History Hx of cystoscopy H/O colonoscopy History of appendectomy Social History Social History Housing: House Are you a primary career guidance technician to a significant other at home: No Do you presently have visiting nurse or other home services: No Alcohol intake: current Alcohol intake frequency: a few times a month Patient Tobacco Use Status: Never used Tobacco e-Cigarette/Vaping Use: Never Used Second Hand Smoke Exposure: Yes Substance Use Type: Marijuana Substance Use Frequency: Daily Have you been hit, kicked, punched, or otherwise hurt by someone within the past year? 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 Rate : 67 BPM Atrial Rate : 67 BPM P-R Int : 162 ms QRS Dur : 86 ms QT Int : 364 ms P-R-T Axes : 72 56 51 degrees QTcB Int : 384 ms Normal sinus rhythm with sinus arrhythmia Normal ECG No previous ECGs availabl Documented by User: Charisse Kathleen MD 12/13/24 11:37 PMFSH Past Medical History Medical History Kidney stones Heartburn Hemorrhoids Family History Family History Mother Cancer Sister HTN (hypertension) Family history of problems with anesthesia: No Surgical History Surgical History Hx of cystoscopy H/O colonoscopy History of appendectomy History of Problems with Anesthesia: No Social History Social History Housing: House Are you a primary career guidance technician to a significant other at home: No Do you presently have visiting nurse or other home services: No Alcohol intake: current Alcohol intake frequency: a few times a month Patient Tobacco Use Status: Never used Tobacco e-Cigarette/Vaping Use: Never Used Second Hand Smoke Exposure: Yes Substance Use Type: Marijuana Substance Use Frequency: Daily Have you been hit, kicked, punched, or otherwise hurt by someone within the past year? 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 Cognitive needs: No Hearing needs: No Vision needs: Yes (Reading Glasses) Meds Allergies Allergy/AdvReac Type Severity Reaction Status Date / Time No Known Allergies (No Known Allergy Verified 12/13/24 10:54 Allergies*) Exam Airway Mallampati Class: II TM Dist: >3cm Neck ROM: Full Heart: rrr Lungs: cta Assessment and Plan Assessment Anesthesia Assessment: Anesthesia Plan Discussed and Chart Reviewed Final Anesthetic Review Family History of Problems with Anesthesia: No History of Problems with Anesthesia: No NPO: Yes ASA Class: II (daily abundant marihuana use per pt) Final Preanesthetic Review: No Changes in Pt Med Stat, Meds/Allgs Chart Reviewed, Consent Obtained/Reviewed and Anes Risks/Benef Reviewed Patient Risk: Intermediate Procedure Risk: Intermediate Anesthetic Plan Anesthetic Plan: GA Disposition: Standard PACU
[2024-12-13 10:01] VITALS: BMI 25.0
[2024-12-13] MEDS: Lactated Ringers 1,000 ML 100 ML IVCONT (10:08)
[2024-12-13 10:21] VITALS: BP 112/75; PULSE 53; RESP 18; TEMP 36.8; O2SAT 96
--- NOTE | 2024-12-13 11:10 | MHC.SHP ---
Pre-Procedural Eval Section A - 24 Hr Update-Section A only Date of Service: 12/13/24 Section B - Complete if H&P > 30 days Chief Complaint: Unilateral inguinal hernia, without obstruction Details of Present Illness: HAS A REDUCIBLE RIGHT INGUINAL HERNIA Relevant Family History (Specify if Yes): No Relevant Social History: None Present Medications: see Short Stay Collaborative assessment Medical History: Significant History (Reflux symptoms) Allergies: Allergies Allergy/AdvReac Type Severity Reaction Status Date / Time No Known Allergies (No Known Allergy Verified 12/13/24 10:54 Allergies*) Review of Systems Sugical H&P ROS: Negative: Constitution, Cardiovascular and Respiratory Exam Surgical H&P Exam: Normal: Heart and Normal: Lungs and Significant Findings: Abdomen (Right inguinal hernia reducible) Plan Diagnosis/Plan: Unchanged I have reviewed the history and physical and performed a pertinent physical examination on my patient. No changes have occurred unless specified. Time Spent With Patient Time: Total time managing care of this patient today ____ minutes.
--- NOTE | 2024-12-13 12:49 | W.PM.OPN ---
Operative Note Operative Note Date of Service: 12/13/24 Narrative: Preop diagnosis: Right inguinal hernia, reducible Postop diagnosis: Right inguinal hernia, reducible, indirect Procedure: Repair of right inguinal hernia with mesh Surgeon: Edouard Velázquez MD assistant women's tennis coach: CHIO Dillon He was brought to the operating room. He was placed supine under general anesthesia via laryngeal mask airway. The right groin was prepped and draped in the usual sterile fashion. A surgical time-out was done. The patient received cefazolin 2 g IV preoperatively. I infiltrated the planned line of incision with lidocaine 1%. I made a short incision in the skin with a blade 15 along an imaginary line from the the anterior superior iliac spine to the pubic ramus. This was carried down with electrocautery through the full-thickness of the skin and thick subcutaneous fat down to the external oblique aponeurosis. I bluntly dissected the external oblique aponeurosis to define the external ring. I made an incision on the external oblique aponeurosis with a blade 15 overlying the inguinal canal and extended this inferomedially to connect with the external ring. I applied hemostats on the divided edges of the aponeurosis. I bluntly dissected the underside of the aponeurosis to create a pocket for the mesh . I then proceeded to bluntly dissect the spermatic cord and its contents with my index finger until was able to pass a Rowan drain around this. The Rowan drain was used for retraction. I identified the vas deferens and the accompanying vessels and these were protected during the dissection. By doing so was able to visualize a large hernia sac which contained fat on the anteromedial aspect. I the hernia from the rest of the cord contents with blunt dissection and electrocautery until was able to reduce this through the internal ring. This was therefore an indirect hernia. I reinforced the internal ring with the medium-sized Prolene plug. The plug was secured with Prolene 2 sutures to the shelving edge of the inguinal meant laterally and the internal oblique superiorly medially. I reinforced the floor of the canal with a keyhole mesh. The tails of the mesh were passed around the cord at the level of the internal ring and were secured together with Prolene 2 sutures. I secured the mesh to the shelving edge of the inguinal meant laterally and the internal oblique superiorly medially as well as the pubic ramus inferomedially with Prolene 2 sutures We observed for hemostasis. Once hemostasis was confirmed, we irrigated. I reapposed the external oblique aponeurosis with a running Polysorb 2-0 stitch to re-create the external ring The thick subcutaneous layer was reapposed with Polysorb 3-0 simple interrupted sutures. Skin closure was achieved with Polysorb 4-0 subcuticular running stitch The incision was infiltrated with Marcaine 0.5% for postop analgesia. Dressings were applied. The procedure was completed. The patient tolerated the procedure well. There were no immediate complications. Initial and final counts of sponges and instruments were correct. Estimated blood loss was less than 25 cc. The patient was extubated without difficulty and transferred to the recovery room with stable vital signs.
[2024-12-13 13:03] VITALS: BP 165/86; PULSE 75; RESP 18; TEMP 36.6; O2SAT 100
[2024-12-13 13:08] VITALS: BP 153/90; PULSE 74; RESP 14; O2SAT 99
[2024-12-13 13:13] VITALS: BP 171/90; PULSE 53; RESP 18; O2SAT 99
[2024-12-13 13:18] VITALS: BP 165/92; PULSE 53; RESP 16; O2SAT 100
[2024-12-13 13:33] VITALS: BP 145/80; PULSE 64; RESP 14; TEMP 36.3; O2SAT 100
== END 2024-12-13 14:03 | disposition home or self-care (01) ==
PROVIDERS: Visit Provider Surgery
PROC: (CPT 49505; principal; 2024-12-13 12:40)
DX: K40.90 Unilateral inguinal hernia, without obstruction or gangrene, not specified as recurrent (principal); R12 Heartburn; N20.0 Calculus of kidney; K64.8 Other hemorrhoids; Z79.1 Long term (current) use of non-steroidal anti-inflammatories (NSAID)
CPT/HCPCS: 49505; C1781; J0131; J0690; J1100; J1885; J2003; J2250; J2405; J2704; J2795; J3010

== ENCOUNTER → 2024-12-13 09:28 | Outpatient (BNV) | payer OTHER, SELFPAY | PROVIDERS: Visit Provider Surgery | DX: K40.20 Bilateral inguinal hernia, without obstruction or gangrene, not specified as recurrent (principal) | CPT/HCPCS: 49505 ==

== ENCOUNTER 2024-12-26 10:42 | Outpatient (AMB) | payer OTHER, SELFPAY ==
--- NOTE | 2024-12-26 10:45 | A.OFFVIS_ITS ---
Vital Signs 12/26/24 10:49 Weight 165 lb BP 127/67 Blood Pressure Location Rt brachial Position Sitting Pulse 83 Intake Visit Reasons: S/P RIH w/mesh Intake Note: Patient here s/p repair of right inguinal hernia with mesh. Patient c/o: no concerns. Reports surgical incisions healing well. No longer taking rx pain meds. Surgery (): 12-13-2024 Credit Verification Clerk Required: No Accompanied by: Self / Same As Patient Allergies No Known Allergies (No Known Allergies*) Allergy (Verified 12/26/24 10:49) HPI HPI S/P RIH w/mesh: Details: Mr. Herrera presents for routine follow up. He underwent repair of right inguinal hernia with mesh on 12/13/24with Dr. Velázquez. He had some incisional pain and mild pain at his right testicle and swelling after the surgery. He took the percocet for this for a few days. He currently denies any pain. He is eating ok. He is back to his baseline bowel habits but reports prolonged straining for bowel movements and hard stools. He does not take anything for a bowel regimen. [facility] Medical History Kidney stones Heartburn Hemorrhoids Surgical History (Updated 12/26/24 @ 11:08 by Radha Dillon PA-C) H/O right inguinal hernia repair (12/13/24) Hx of cystoscopy H/O colonoscopy History of appendectomy Family History Mother Cancer Sister HTN (hypertension) Social History Housing: House Are you a primary infant childcare provider to a significant other at home: No Do you presently have visiting nurse or other home services: No Alcohol intake: current Alcohol intake frequency: a few times a month Patient Tobacco Use Status: Never used Tobacco e-Cigarette/Vaping Use: Never Used Second Hand Smoke Exposure: Yes Substance Use Type: Marijuana service: No Current occupational status: employed 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 Cognitive needs: No Hearing needs: No Vision needs: Yes (Reading Glasses) Review of Systems Const All systems reviewed & are unremarkable except as noted in HPI and below Physical Exam Vital Signs: Last Vital Signs Pulse 83 12/26/24 10:49 BP 127/67 12/26/24 10:49 Const General: comfortable, no acute distress and alert Orientation/consciousness: patient oriented x3 Resp Effort & Inspection: normal respiratory effort, able to speak in complete sentences and not labored GI Other: right inguinal repair incision well healed, mild induration at lateral aspect, no erythema or edema, no palpable hernia on valsalva Palpation (GI): Soft to palpation and nontender Skin General skin exam: no rashes or lesions noted Neuro General: patient oriented x3 and moves all extremities Assessment & Plan Assessment & Plan (1) S/P right inguinal hernia repair, follow-up exam: Code(s): Z09 - Encounter for follow-up examination after completed treatment for conditions other than malignant neoplasm Category: Surgical Plan 54 year old male who is 2 weeks s/p right inguinal hernia repair with mesh. He tolerated the procedure well. He is back to his baseline with no pain. Incision site is well healed without evidence of infection or recurrence. He was instructed to refrain from heavy lifting/strenuous activities until he is 6 weeks post op and a work note was provided. He was educated to increase his daily water and fiber intact and add in a daily fiber supplementation to help with his straining and hemorrhoids. He is comfortable with the plan. All questions answered. He can call the office if he has any concerns. Coding Level of Care Code Est Pt Level 2 (14719) Diagnoses S/P right inguinal hernia repair, follow-up exam Z09
[2024-12-26 10:49] VITALS: BP 127/67; PULSE 83
== END 2024-12-26 11:03 | disposition home or self-care (01) ==
LOC: HO.HGS 10:43
PROVIDERS: Visit Provider Physician Assistant Surgical
DX: Z09 Encounter for follow-up examination after completed treatment for conditions other than malignant neoplasm (principal)
CPT/HCPCS: 99024

== ENCOUNTER 2025-01-26 14:56 | Emergency (ER) | payer OTHER, SELFPAY ==
--- NOTE | ~2025-01-26 | CT_ITS ---
EXAMINATION: CT ABDOMEN AND PELVIS WITHOUT CONTRAST CLINICAL INFORMATION: COMPARISON: None available. TECHNIQUE: Multidetector volumetric imaging was performed from the superior aspect of the liver through the pubic symphysis. Sagittal and coronal reformatted images were obtained on the technologist's workstation. This CT examination was performed using dose optimization techniques as appropriate, variously including the following: *Automated exposure control *Adjustment of mA and/or kV according to patient size (this includes techniques or standardized protocols for targeted exams where dose is matched to indication/reason for exam; i.e. extremities or head) *Use of iterative reconstruction technique FINDINGS: LUNG BASES: The visualized lung bases are clear bilaterally. There are no effusions. The heart size is normal. Normal GE junction. LIVER, GALLBLADDER, AND BILIARY TREE: The liver is normal in size, shape, and attenuation. No focal hepatic lesion or biliary ductal dilatation is present. The gallbladder is unremarkable with no evidence of radiopaque gallstones, gallbladder wall thickening, or obvious pericholecystic inflammatory changes. PANCREAS: Unremarkable. SPLEEN: Unremarkable. ADRENAL GLANDS: Unremarkable. KIDNEYS AND URETERS: Mild right hydronephrosis and hydroureter secondary to a 3 mm obstructing calculus at the ureterovesical junction. There are no additional renal calculi. The left kidney is normal. The left ureter is normal. BLADDER: Suboptimally distended but grossly normal. GASTROINTESTINAL TRACT: There are no acute findings involving the gastrointestinal tract. There is no CT evidence of acute appendicitis. ABDOMINAL WALL: There has been a prior right inguinal hernia repair. There is no significant hernia. LYMPH NODES: No abnormal lymphadenopathy is present. VASCULAR: There is no aneurysm. There is mild atheromatous calcification of the aorta and iliac arteries. PELVIC VISCERA: There is mild prostate enlargement, with diameter of 4.4 cm OSSEOUS STRUCTURES: No suspicious lytic or blastic bone lesions. There are mild changes of sacroiliitis, possibly inflammatory. CT/CT abdomen pelvis wo IV con IMPRESSION: 1. Mild right hydronephrosis and hydroureter secondary to a 3 mm obstructing calculus at the ureterovesical junction. Electronically signed by: Meliton Dumont MD 01/26/2025 03:56 PM EDT
[2025-01-26 15:06] VITALS: BP 161/96; PULSE 92; RESP 18; TEMP 37; O2SAT 99; BMI 22.5
--- NOTE | 2025-01-26 15:09 | ED.GENADULT ---
HPI - General Adult General Chief complaint: Back Pain/Injury Stated complaint: back pain Time Seen by Provider: 01/26/25 18:09 Source: patient, RN notes reviewed and old records reviewed Mode of arrival: ambulatory Limitations: no limitations History of Present Illness ED Provider: Lizzie [facility] narrative: Patient is a 54-year-old male presenting to the ED with complaint of right flank pain since yesterday. States pain did resolve at one point then returned and has been more severe. Denies any gross hematuria, dysuria, frequency. Reports history of kidney stones in the past requiring stent. Denies fevers. Reports nausea and vomiting, denies diarrhea. Denies hematemesis. MD complaint: right flank pain Onset (ago): day(s) Related Data Previous Rx's ?Medication ?Instructions ?Recorded ibuprofen 600 mg tablet 600 mg PO Q6H PRN pain #30 tabs 12/13/24 ondansetron 4 mg disintegrating 4 mg PO Q8H PRN nausea and 01/26/25 tablet vomiting #10 tabs oxycodone 5 mg tablet 5 mg PO Q6H PRN severe pain (scale 01/26/25 score 7-10) #8 tabs prednisone 20 mg tablet 20 mg PO DAILY #7 tabs 01/26/25 tamsulosin 0.4 mg capsule 0.4 mg PO DAILY #14 caps 01/26/25 Allergies Allergy/AdvReac Type Severity Reaction Status Date / Time No Known Allergies (No Known Allergy Verified 01/26/25 15:06 Allergies*) Review of Systems Review of Systems: As per HPI Yes all other systems are reviewed and are negative Constitutional: Constitutional: Reports as per HPI PMFSH Past Medical History Medical History (Updated 01/26/25 @ 19:48 by Lexus Samuel NP) Kidney stones Heartburn Hemorrhoids Surgical History (Updated 12/26/24 @ 11:08 by Radha Dillon PA-C) H/O right inguinal hernia repair (12/13/24) Hx of cystoscopy H/O colonoscopy History of appendectomy Family History Family History Mother Cancer Sister HTN (hypertension) Social History Social History Housing: House Are you a primary tire care manager to a significant other at home: No Do you presently have visiting nurse or other home services: No Alcohol intake: current Alcohol intake frequency: a few times a month Patient Tobacco Use Status: Never used Tobacco Smoked in Last 30 Days: No e-Cigarette/Vaping Use: Never Used Second Hand Smoke Exposure: Yes Substance Use Type: Marijuana Substance Use Frequency: Occasionally Advance Directives: No Advance Directives Information Provided: No service: No Current occupational status: employed 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 Blood pressure normal. Heart rate normal. Respiratory rate normal. Temperature normal. Oxygen saturation normal. Const General: cooperative, healthy appearing and in distress (severe pain) Orientation/consciousness: oriented to person, oriented to place, oriented to time and patient oriented x3 Limitations: no limitations HENMT Head: Yes normocephalic and Yes atraumatic Ears: external ears normal General nose exam: Normal external nose present Face and sinus: Yes face symmetric Mouth: oropharynx normal and moist mucous membranes Throat: Yes uvula midline Eyes Pupils: Equal, round and reactive pupils present Neck Neck: Yes normal visual inspection and Yes supple Resp Effort & Inspection: normal respiratory effort and able to speak in complete sentences Auscultation: clear to auscultation bilaterally Cardio Rate: regular rate Rhythm: regular rhythm Heart sounds: S1 normal heart sound present and S2 normal heart sound present GI Palpation (GI): Soft to palpation and nontender Auscultation: normoactive bowel sounds General: Yes CVA tenderness on the right Back/Spine/Pelvis Back: CVA tenderness Skin General skin exam: elasticity normal and turgor normal Neuro General: oriented to person, oriented to place, oriented to time, patient oriented x3, moves all extremities, no focal motor deficits and CN's II-XI intact bilaterally Cranial nerves: Yes Equal, round and reactive pupils present Cognition (Neuro): normal cognition Extrem General: Yes full ROM, Yes no pedal edema and Yes no calf tenderness Psych Mental Status: mental status grossly normal Affect: normal affect Thought process: Normal thought process present Course Course Course Narrative: This is a rapid medical exam performed by Maricruz Samuel NP: Additional HPI, ROS, PE not included below will be deferred to primary provider. Patient is a 54-year-old male presenting to the ED with complaint of right flank pain since yesterday. States pain did resolve at one point then returned. Vomiting in triage. Plan: labs, UA, CT, medicated in triage with zofran and toradol Reevaluation(s) Reevaluation #1: patient resting comfortably, his pain is improved. Discussed discharge instructions and return precautions with him Time: 20:55 Medications Administered Discontinued Medications Generic Name Dose Route Start Last Admin Trade Name Anu PRN Reason Stop Dose Admin Hydromorphone HCl 1 mg 01/26/25 19:21 01/26/25 20:07 Hydromorphone Hcl 1 Mg/Ml Syringe IVPUSH 01/26/25 19:22 1 mg ONCE ONE Administration Protocol Sodium Chloride 1,000 mls @ 999 mls/hr 01/26/25 18:15 01/26/25 20:10 Ns IV 01/26/25 19:15 Infused .Q1H1M JODY Infusion Ketorolac Tromethamine 30 mg 01/26/25 15:09 01/26/25 15:12 Ketorolac Tromethamine 30 Mg/Ml Vial IM 01/26/25 15:10 30 mg ONCE ONE Administration Morphine Sulfate 4 mg 01/26/25 18:09 01/26/25 18:36 Morphine Sulfate 4 Mg/Ml Cartridge IVPUSH 01/26/25 18:10 4 mg ONCE ONE Administration Protocol Ondansetron HCl 4 mg 01/26/25 15:01/26/25 15:12 Ondansetron Odt 4 Mg Tab.Rapdis TRANSLINGU 01/26/25 15:10 4 mg ONCE ONE Administration Ondansetron HCl 4 mg 01/26/25 18:09 01/26/25 18:37 Ondansetron Hcl 4 Mg/2 Ml Vial IVPUSH 01/26/25 18:10 4 mg ONCE ONE Administration Prednisone 20 mg 01/26/25 18:01/26/25 18:37 Prednisone 20 Mg Tablet PO 01/26/25 18:10 20 mg ONCE ONE Administration Tamsulosin HCl 0.4 mg 01/26/25 18:01/26/25 18:37 Tamsulosin Hcl 0.4 Mg Capsule PO 01/26/25 18:10 0.4 mg ONCE ONE Administration Medical Decision Making Medical Decision Making [facility] Narrative: Patient is a 54-year-old male presenting to the ED with complaint of right flank pain since yesterday. On exam patient is awake, A+Ox3, VS WNL, afebrile, normal neurological exam without focal deficits, physical exam findings as above. Given reported symptoms and physical exam findings, initial differential includes but is not limited to UTI, pyelonephritis, renal colic, ureteral obstructing calculi, hydronephrosis. Labs notable for mild leukocytosis, no evidence of ARMEN. CT A/P notable for 3 mm obstructing calculi at UVJ with mild hydronephrosis and hydroureter. My interpretation is in agreement with the radiologist's interpretation. UA notable for 1+ blood, no evidence of infection. Patient reports good relief of pain from Toradol given in triage but states after that wore off his pain returned. Patient reports minimal relief of pain from morphine and currently rates pain at 7/10. Will try Dilaudid. Patient states that he did drive himself to the emergency department and does not have someone to come pick him up but that he is willing to stay in the emergency department for some time after he has medicated with the Dilaudid. Patient signed out to [facility] pending pain reassessment after dilaudid, with anticipated discharge home. Differential Diagnosis Differential Diagnoses: The differential diagnosis associated with the presentation includes As per [facility] Admission/Observation Consideration of admission/observation: Escalation of care including admission/observation considered Patient would have been admitted to the hospital had their clinical presentation warranted hospital admission. Lab Data [facility] Lab Attestation statement: I reviewed the patient's lab results. as per [facility] 01/26/25 16:01 01/26/25 16:01 Labs: Lab Results 01/26/25 01/26/25 Range/Units 16:01 18:15 WBC 13.0 H (4.8-10.8) X10*3/uL RBC 4.26 L (4.60-5.80) X10*6/uL Hgb 13.0 L (14.0-18.0) g/dl Hct 36.0 L (42.0-52.0) % MCV 84.5 (80.0-98.0) fL MCH 30.5 (27.0-33.0) pg MCHC 36.1 H (31.0-36.0) g/dl RDW 11.9 (11.0-16.0) % Plt Count 229 (160-400) X10*3/uL MPV 9.9 (9.4-12.4) fL Immature Gran % (Auto) 0.4 (0.0-0.4) % Neut % (Auto) 81.2 H (45-73) % Lymph % (Auto) 10.7 L (20-40) % Sanders % (Auto) 6.4 (2-11) % Eos % (Auto) 1.1 (0-4) % Baso % (Auto) 0.2 (0-2) % Lymph # (Auto) 1.4 (1.2-4.9) X10*3/uL Sanders # (Auto) 0.8 (0.1-1.2) X10*3/uL Eos # (Auto) 0.1 (0.0-0.4) X10*3/uL Baso # (Auto) 0.0 (0.0-0.2) X10*3/uL Abs Immat Gran (auto) 0.05 H (0.00-0.03) X10*3/uL Absolute Neuts (auto) 10.6 H (2.0-8.3) x10*3/uL Absolute Nucleated RBC 0.000 (0.0-0.012) X10*3/uL Nucleated RBC % (auto) 0.0 (0.0-0.2) /100WBC Sodium 139 (135-145) mmol/L Potassium 4.4 (3.3-5.1) mmol/L Chloride 105 (96-108) mmol/L Carbon Dioxide 26 (22-29) mmol/L Anion Gap 12 (12-20) BUN 18 H (9-16) mg/dL Creatinine 1.17 (0.5-1.4) mg/dL Estim Creat Clear Calc 75.8 Estimated GFR > 60 Random Glucose 95 (60-115) mg/dL Calcium 9.5 (8.4-10.2) mg/dL Total Bilirubin 0.6 (0.0-1.0) mg/dL AST 23 (5-37) U/L ALT 15 (0-40) U/L Alkaline Phosphatase 74 (39-117) U/L Total Protein 7.4 (6.5-8.0) g/dL Albumin 4.3 (3.5-5.0) g/dL Urine Color Yellow Urine Appearance Clear Urine pH 5.5 (5.0-9.0) Ur Specific [place] >= 1.030 H (1.005-1.025) Urine Protein Trace (Neg-Trace) mg/dL Urine Glucose (UA) Negative (Negative) mg/dL Urine Ketones 15 (Negative) mg/dL Urine Blood Small (1+) H (Negative) Urine Nitrite Negative (Negative) Ur Leukocyte Esterase Negative (Negative) Urine RBC 6-10 H (0-2) /HPF Urine WBC 0-5 (0-5) /HPF Ur Squamous Epith Cells 0-2 (0-2) /HPF Urine Bacteria None Seen (None Seen) Hyaline Casts 0-2 (0-2) /LPF Independent Interpretation I performed an independent interpretation of an: CT Scan Interpretation: CT abdomen pelvis notable for 3 mm obstructing calculi at UVJ with mild hydronephrosis and hydroureter Radiology Impression Discussion of test interpretation with radiology: I have reviewed the radiologist's reading. Radiologist Impression: CT/CT abdomen pelvis wo IV con IMPRESSION: 1. Mild right hydronephrosis and hydroureter secondary to a 3 mm obstructing calculus at the ureterovesical junction. External Record Review External record reviewed: Inpatient record, Office record and Outpatient record Discharge Plan Discharge Clinical Impression: Right ureteral calculus Patient Disposition: Home, Self-Care Instructions: How to Strain Your Urine (ED), Hydronephrosis (ED), Ureteral Stones (ED) Additional Instructions: You were evaluated in the emergency department for flank pain. Your CT scan showed evidence of a stone in your right ureter. The stone is 3 mm which may or may not pass on its own. Your are being provided with a urine strainer to use at home, instructions are included in your discharge paperwork. You are being prescribed prednisone to decrease inflammation, tamsulosin to allow the stone to pass more easily, and oxycodone as needed for severe pain. You can also take 600 mg of ibuprofen every 6 hours as needed for pain. Your being prescribed ondansetron which you can use every 8 hours as needed for nausea. You are being referred to Urology, please call them 1st thing Thursday morning for an appointment this week. Return to the emergency department if you develop worsening pain, persistent vomiting, fever 100.4? or greater, inability to urinate, or any other concerning symptoms. [facility] will be contacting you within 2 business?days after being discharged from the Emergency?Department.? During this?phone call, they will inform you when your follow up appointment will be scheduled. If you have not received a call from [facility] after 2 business?days, please call the?office at [phone]. Prescriptions: New ondansetron 4 mg tablet,disintegrating 4 mg PO Q8H PRN (Reason: nausea and vomiting) Qty: 10 0RF prednisone 20 mg tablet 20 mg PO DAILY Qty: 7 0RF tamsulosin 0.4 mg capsule 0.4 mg PO DAILY Qty: 14 0RF oxycodone 5 mg tablet 5 mg PO Q6H PRN (Reason: severe pain (scale score 7-10)) Qty: 8 0RF Rx Instructions: Partial Fill upon patient request. No Action ibuprofen 600 mg tablet 600 mg PO Q6H PRN (Reason: pain) Qty: 30 0RF Referrals: [facility] [Provider Group, Urology] Clinical Impression: Right ureteral calculus Print Language: Faroese
[2025-01-26 16:14] LABS: MANUAL DIFF FLAG NO
[2025-01-26 16:16] LABS: Hematocrit 36.0 % (42.0-52.0); Hemoglobin 13.0 g/dl (14.0-18.0); Imm Gran Abs Auto 0.05 X10*3/uL (0.00-0.03); Imm Gran Pct Auto 0.4 % (0.0-0.4); Lymphocytes Absolute Auto 1.4 X10*3/uL (1.2-4.9); Mean Corpuscular HGB Conc 36.1 g/dl (31.0-36.0); Mean Corpuscular Hemoglobin 30.5 pg (27.0-33.0); Mean Corpuscular Volume 84.5 fL (80.0-98.0); NRBC Abs Auto 0.000 X10*3/uL (0.0-0.012); NRBC Pct Auto 0.0 /100WBC (0.0-0.2); Platelet Count 229 X10*3/uL (160-400); Red Blood Count 4.26 X10*6/uL (4.60-5.80); White Blood Count 13.0 X10*3/uL (4.8-10.8)
[2025-01-26 16:34] LABS: Alanine Aminotransferase 15 U/L (0-40); Albumin Level 4.3 g/dL (3.5-5.0); Alkaline Phosphatase 74 U/L (39-117); Anion Gap 12 (12-20); Aspartate Amino Transferase 23 U/L (5-37); Blood Urea Nitrogen 18 mg/dL (9-16); Calcium 9.5 mg/dL (8.4-10.2); Carbon Dioxide 26 mmol/L (22-29); Chloride 105 mmol/L (96-108); Creatinine Clr Calc Pharmacy 75.8; Estimated Glomerular Filt Rate > 60; Potassium 4.4 mmol/L (3.3-5.1); Sodium 139 mmol/L (135-145); Total Protein 7.4 g/dL (6.5-8.0)
[2025-01-26 18:09] VITALS: BP 149/76; PULSE 62; RESP 16; TEMP 36.6; O2SAT 98
[2025-01-26 18:31] LABS: Appearance Urine Clear; Glucose Urine UA Negative (Negative); PH 5.5 (5.0-9.0); Specific Gravity - Urine >= 1.030 (1.005-1.025); UMIC TRIGGER UACC YES
[2025-01-26 20:04] VITALS: BP 139/86; PULSE 70; RESP 16; TEMP 36.6; O2SAT 97
[2025-01-26 20:07] VITALS: RESP 18
[2025-01-26 21:20] VITALS: BP 139/86; PULSE 70; RESP 18; TEMP 36.6; O2SAT 98
== END 2025-01-26 21:22 | disposition home or self-care (01) ==
PROVIDERS: Registered Nurse Emergency; Emergency Provider Emergency Medicine
DX: N20.1 Calculus of ureter (principal)
CPT/HCPCS: 36415; 74176; 80053; 81001; 85025; 96361; 96372; 96374; 96375; 99284; J1171; J1885; J2270; J2405

== ENCOUNTER → 2025-01-26 15:09 | Outpatient (BNV) | payer OTHER, SELFPAY | PROVIDERS: Visit Provider Radiology Diagnostic Radiology | DX: R10.9 Unspecified abdominal pain (principal) | CPT/HCPCS: 74176 ==

== ENCOUNTER 2025-01-29 02:03 | Inpatient (IN) | payer OTHER, SELFPAY ==
--- NOTE | ~2025-01-29 | CT_ITS ---
CLINICAL HISTORY: R Flank Pain; Recently Dx Ureterolithiasis CT abdomen and pelvis with contrast Comparison: 01/26/2025 Findings: No consolidation or effusion. The gallbladder and solid organs are within normal limits. There is moderate right hydroureteronephrosis secondary to a 2 mm ureterovesicular junction calculus. No bowel obstruction, pneumoperitoneum, or pneumatosis. Pelvic contents unremarkable. Normal appendix. There is a right inguinal hernia. No acute fracture. IMPRESSION: Moderate right hydroureteronephrosis secondary to a 2 mm ureterovesicular junction calculus.. This document has been electronically signed by: Cecilio Taylor MD on 01/29/2025 05:46:30
[2025-01-29 02:12] VITALS: BP 138/84; PULSE 91; RESP 20; TEMP 37.2; O2SAT 95; BMI 24.7
--- NOTE | 2025-01-29 02:29 | ED_ITS ---
HPI - Abdominal Pain General Chief Complaint: Abdominal Pain Stated Complaint: Kidney Stones Time Seen by Provider: 01/29/25 02:28 Source: patient Mode of arrival: ambulatory Limitations: no limitations History of Present Illness ED Provider: Meliton BARROSO HPI narrative: The patient is a 54-year-old male presenting to the ED for evaluation of recurrence of right-sided flank pain. Patient was seen in the ED on 01/26 and diagnosed with a 3 mm right kidney stone at the ureterovesicular junction. Patient was treated with Toradol, morphine, Dilaudid, and ultimately discharged with tamsulosin, Motrin, and oxycodone. Patient reports pain has been manageable until this morning when it began to increase, patient took oxycodone with some improvement, however pain again increased throughout the day, when returning home this evening he took additional oxycodone without relief, and attempted to 1 additional tablet at 01:00 without any relief, prompting ED evaluation. Patient reports associated nausea without associated vomiting, denies associated fever/chills, chest pain, shortness of breath, abdominal pain, hematuria, or other acute somatic complaint. Related Data Previous Rx's ?Medication ?Instructions ?Recorded ibuprofen 600 mg tablet 600 mg PO Q6H PRN pain #30 t abs 12/13/24 ondansetron 4 mg disintegrating 4 mg PO Q8H PRN nausea and 01/26/25 tablet vomiting #10 tabs oxycodone 5 mg tablet 5 mg PO Q6H PRN severe pain (scale 01/26/25 score 7-10) #8 tabs prednisone 20 mg tablet 20 mg PO DAILY #7 tabs 01/26 tamsulosin 0.4 mg capsule 0.4 mg PO DAILY #14 caps 09/16 Allergies Allergy/AdvReac Type Severity Reaction Status Date / Time No Known Allergies (No Known Allergy Verified 01/29/25 02:14 Allergies*) Review of Systems Review of Systems Yes all other systems are reviewed and are negative [facility] Past Medical History Medical History (Updated 01/29/25 @ 07:07 by Daphney Valdovinos MD) Kidney stones Heartburn Hemorrhoids Surgical History (Updated 12/26/24 @ 11:08 by Radha Dillon PA-C) H/O right inguinal hernia repair (12/13/24) Hx of cystoscopy H/O colonoscopy History of appendectomy Family History Family History Mother Cancer Sister HTN (hypertension) Social History Social History Housing: House Are you a primary healthcare corporate account director to a significant other at home: No Do you presently have visiting nurse or other home services: No Alcohol intake: current Alcohol intake frequency: a few times a month Patient Tobacco Use Status: Never used Tobacco e-Cigarette/Vaping Use: Never Used Second Hand Smoke Exposure: Yes Substance Use Type: Marijuana Advance Directives: No Advance Directives Information Provided: Yes Do you have a plan to hurt others: No Plan service: No Current occupational status: employed 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 Vital signs as documented. HEAD: Atraumatic, normocephalic. EYES: EOMs grossly intact, pupils equal, conjunctiva clear, no exudate. ENT: Nares patent, no discharge. Airway patent, no audible stridor, visible mucosa is pink and moist without noted lesions. NECK: Trachea is midline, no obvious masses or gross abnormalities. CHEST: Symmetric movement, normal appearance. LUNGS: LS present and CTAB, no w/r/r. Non-labored work of breathing. CARDIAC: Regular Rhythm, S1/S2 appreciated, no murmurs, rubs or gallops. ABDOMEN: Abdomen soft x4 quadrants, positive tenderness to palpation of the right lower quadrant, negative rebound, negative Rovsing's, no palpable masses or organomegaly. Positive right CVAT, negative on the left. : Deferred. EXTREMITIES: Normal tone, moves all extremities spontaneously without reported pain. No obvious acute injury or deformity noted. NEURO: Alert and oriented x3, CN II-XII appear grossly intact. Cerebellar Functioning grossly intact. No obvious sensory or motor deficits. Speech clear and appropriate. PSYCH: normal affect, appropriate eye contact, fluid speech, with appropriate response to questioning. No reported suicidality or homicidality. SKIN: Warm, dry, color appropriate, normal turgor. No rashes noted. Medical Decision Making Medical Decision Making [facility] Narrative: 2:49 AM 01/29/2025 (Hans BARROSO): The patient is a 54-year-old male presenting to the ED for evaluation of recurrent right flank pain which began on 01/26 when he was diagnosed with a 3 mm right ureteral stone at the right UVJ. Patient reports pain had begun to improve but then recurred today, initially responsive to oxycodone but not responsive to his last 2 doses. The patient denies taking other medication for his symptoms. Patient denies associated fever/chills, vomiting, or other systemic complaint. The patient in the ED appears moderately uncomfortable, with right CVAT and right lower quadrant abdominal pain without rebound. Patient will be treated with IV fluid hydration and Toradol, and we will repeat laboratory evaluation and CT to re-evaluate location of stone and severity of hydronephrosis. Of note patient does have a remote history of previously requiring a ureteral stent. I received sign-out from my colleague CHIO Gusman CT scan shows a moderate right hydroureteronephrosis secondary to a 2 mm ureterovesicular junction calculus Patient's creatinine at baseline is 1.1, now is 1.6. Patient received IV fluids, we rechecked labs again and the creatinine did not improve much, patient is still has ARMEN. Also, patient continues complaining of flank pain. Patient already received Dilaudid and ketorolac. I discussed the patient with Dr. Kodak rm from Urology, patient to be admitted by Medicine, likely going to the OR on Thursday I discussed the above-mentioned with ROSE Mcfadden, pt being admitted I discussed the above-mentioned with the patient, patient agrees with plan Differential Diagnosis Differential Diagnoses: The differential diagnosis associated with the presentation includes (Ureterolithiasis, pyelonephritis, renal colic) Admission/Observation Consideration of admission/observation: Escalation of care including admission/observation considered Consult Healthcare Provider Management of the patient was discussed with: [employer] Lab Data [facility] Lab Attestation statement: I reviewed the patient's lab results. 01/29/25 02:40 01/29/25 04:28 Labs: Lab Results 01/29/25 01/29/25 01/29/25 Range/Units 02:40 04:28 06:12 WBC 11.6 H (4.8-10.8) X10*3/uL RBC 3.69 L (4.60-5.80) X10*6/uL Hgb 11.1 L (14.0-18.0) g/dl Hct 31.1 L (42.0-52.0) % MCV 84.3 (80.0-98.0) fL MCH 30.1 (27.0-33.0) pg MCHC 35.7 (31.0-36.0) g/dl RDW 12.0 (11.0-16.0) % Plt Count 202 (160-400) X10*3/uL MPV 9.7 (9.4-12.4) fL Immature Gran % (Auto) 0.2 (0.0-0.4) % Neut % (Auto) 68.1 (45-73) % Lymph % (Auto) 19.5 L (20-40) % [place] % (Auto) 11.8 H (2-11) % Eos % (Auto) 0.3 (0-4) % Baso % (Auto) 0.1 (0-2) % Lymph # (Auto) 2.3 (1.2-4.9) X10*3/uL [place] # (Auto) 1.4 H (0.1-1.2) X10*3/uL Eos # (Auto) 0.0 (0.0-0.4) X10*3/uL Baso # (Auto) 0.0 (0.0-0.2) X10*3/uL Abs Immat Gran (auto) 0.02 (0.00-0.03) X10*3/uL Absolute Neuts (auto) 7.9 (2.0-8.3) x10*3/uL Absolute Nucleated RBC 0.000 (0.0-0.012) X10*3/uL Nucleated RBC % (auto) 0.0 (0.0-0.2) /100WBC Sodium 141 139 (135-145) mmol/L Potassium 3.6 3.6 (3.3-5.1) mmol/L Chloride 107 107 (96-108) mmol/L Carbon Dioxide 25 25 (22-29) mmol/L Anion Gap 13 11 L (12-20) BUN 23 H 22 H (9-16) mg/dL Creatinine 1.66 H 1.52 H (0.5-1.4) mg/dL Estim Creat Clear Calc 51.9 56.6 Estimated GFR 43 48 Random Glucose 101 101 (60-115) mg/dL Calcium 9.0 8.2 L D (8.4-10.2) mg/dL Total Bilirubin 0.8 (0.0-1.0) mg/dL AST 22 (5-37) U/L ALT 11 (0-40) U/L Alkaline Phosphatase 68 (39-117) U/L Total Protein 6.9 (6.5-8.0) g/dL Albumin 4.0 (3.5-5.0) g/dL Urine Color Yellow Urine Appearance Clear Urine pH 5.5 (5.0-9.0) Ur Specific [place] >= 1.030 H (1.005-1.025) Urine Protein Trace (Neg-Trace) mg/dL Urine Glucose (UA) Negative (Negative) mg/dL Urine Ketones Negative (Negative) mg/dL Urine Blood Trace H (Negative) Urine Nitrite Negative (Negative) Ur Leukocyte Esterase Negative (Negative) Urine RBC 0-2 (0-2) /HPF Urine WBC 0-5 (0-5) /HPF Ur Squamous Epith Cells 0-2 (0-2) /HPF Urine Bacteria None Seen (None Seen) Hyaline Casts 0-2 (0-2) /LPF Independent Interpretation I performed an independent interpretation of an: CT Scan Radiology Impression Discussion of test interpretation with radiology: I have reviewed the radiologist's reading. Radiologist Impression: No consolidation or effusion. The gallbladder and solid organs are within normal limits. There is moderate right hydroureteronephrosis secondary to a 2 mm ureterovesicular junction calculus. No bowel obstruction, pneumoperitoneum, or pneumatosis. Pelvic contents unremarkable. Normal appendix. There is a right inguinal hernia. No acute fracture. IMPRESSION: Moderate right hydroureteronephrosis secondary to a 2 mm ureterovesicular junction calculus.. External Record Review External record reviewed: Outpatient record Prescription Management I considered prescription management with: Pain Medication and Antibiotic Medications Administered Discontinued Medications Generic Name Dose Route Start Last Admin Trade Name Anu PRN Reason Stop Dose Admin Hydromorphone HCl 1 mg 01/29/25 06:57 01/29/25 07:06 Hydromorphone Hcl 1 Mg/Ml Syringe IVPUSH 01/29/25 06:58 1 mg ONCE ONE Administration Protocol Sodium Chloride 1,000 mls @ 999 mls/hr 01/29/25 02:45 01/29/25 03:59 Ns IV 01/29/25 03:45 Infused .Q1H1M JODY Infusion Iohexol 85 ml 01/29/25 03:39 01/29/25 03:44 Iohexol 350 Mg/Ml 100 Ml Infus..Btl IV 01/29/25 03:40 85 ml ONCE ONE Administration Ketorolac Tromethamine 15 mg 01/29/25 02:31 01/29/25 02:42 Ketorolac Tromethamine 15 Mg/Ml Vial IVPUSH 01/29/25 02:32 15 mg ONCE ONE Administration Critical Care Time Critical Care Time Critical Care Time: Yes Total Critical Care Time: 60 Attestation: I have personally provided critical care time. Time includes review of lab data, radiology results, discussion with consultants, and monitoring for potential decompensation. Intervention performed as documented. Discharge Plan Discharge Clinical Impression: Ureterolithiasis, ARMEN (acute kidney injury) Patient Disposition: Admitted As Inpatient Print Language: Hebrew
[2025-01-29 02:45] LABS: Hematocrit 31.1 % (42.0-52.0); Hemoglobin 11.1 g/dl (14.0-18.0); Imm Gran Abs Auto 0.02 X10*3/uL (0.00-0.03); Imm Gran Pct Auto 0.2 % (0.0-0.4); Lymphocytes Absolute Auto 2.3 X10*3/uL (1.2-4.9); MANUAL DIFF FLAG NO; Mean Corpuscular HGB Conc 35.7 g/dl (31.0-36.0); Mean Corpuscular Hemoglobin 30.1 pg (27.0-33.0); Mean Corpuscular Volume 84.3 fL (80.0-98.0); NRBC Abs Auto 0.000 X10*3/uL (0.0-0.012); NRBC Pct Auto 0.0 /100WBC (0.0-0.2); Platelet Count 202 X10*3/uL (160-400); Red Blood Count 3.69 X10*6/uL (4.60-5.80); White Blood Count 11.6 X10*3/uL (4.8-10.8)
[2025-01-29 02:58] LABS: Alanine Aminotransferase 11 U/L (0-40); Albumin Level 4.0 g/dL (3.5-5.0); Alkaline Phosphatase 68 U/L (39-117); Anion Gap 13 (12-20); Aspartate Amino Transferase 22 U/L (5-37); Blood Urea Nitrogen 23 mg/dL (9-16); Calcium 9.0 mg/dL (8.4-10.2); Carbon Dioxide 25 mmol/L (22-29); Chloride 107 mmol/L (96-108); Creatinine Clr Calc Pharmacy 51.9; Estimated Glomerular Filt Rate 43; Potassium 3.6 mmol/L (3.3-5.1); Sodium 141 mmol/L (135-145); Total Protein 6.9 g/dL (6.5-8.0)
[2025-01-29] MEDS: iohexoL 350 MG/ML 100 ML INFUS..BTL 85 ML IV (03:44)
[2025-01-29 04:45] LABS: Anion Gap 11 (12-20); Blood Urea Nitrogen 22 mg/dL (9-16); Calcium 8.2 mg/dL (8.4-10.2); Carbon Dioxide 25 mmol/L (22-29); Chloride 107 mmol/L (96-108); Creatinine Clr Calc Pharmacy 56.6; Estimated Glomerular Filt Rate 48; Potassium 3.6 mmol/L (3.3-5.1); Sodium 139 mmol/L (135-145)
[2025-01-29 06:10] VITALS: BP 109/73; PULSE 60; RESP 18; TEMP 36.8; O2SAT 98
[2025-01-29 06:19] LABS: Appearance Urine Clear; Glucose Urine UA Negative (Negative); PH 5.5 (5.0-9.0); Specific Gravity - Urine >= 1.030 (1.005-1.025); UMIC TRIGGER UACC YES
--- NOTE | 2025-01-29 07:14 | P.HPHOSP_ITS ---
History of Present Illness Date of Service: 01/29/25 Attending physician on admission: Sherrill Betancourt Chief Complaint: right flank pain This is a 54 year old male who presents to the ED with right flank pain. He was initially seen in the emergency department on January 26 with right flank pain at that time he was diagnosed to have a right-sided kidney stone. He was discharged home with Flomax, prednisone and pain medication. He has been taking medication without any improvement in his symptoms which prompted him to return to the emergency department for evaluation. He denies any associated fever, nausea, vomiting, dysuria. CT scan of the abdomen and pelvis was repeated which showed moderate right hydroureteronephrosis secondary to 2 mm ureterovesicular junction calculus, renal function noted to have worsened with a creatinine of 1.66. Case discussed with urology, patient will be admitted to the medical service. Review of Systems 2 Review of Systems: Yes all other systems are reviewed and are negative Constitutional: Constitutional: Denies chills and Denies fever(s) Cardiovascular: Cardiovascular: Denies chest pain, Denies palpitations and Denies dyspnea Respiratory: Respiratory: Denies cough and Denies dyspnea Gastrointestinal: Gastrointestinal: Denies nausea and Denies vomiting Endocrine: Endocrine: Denies palpitations [facility] Medical History Kidney stones Heartburn Hemorrhoids Family History Mother Cancer Sister HTN (hypertension) Surgical History H/O right inguinal hernia repair (12/13/24) Hx of cystoscopy H/O colonoscopy History of appendectomy Social History Housing: House Are you a primary md do resident urgent care to a significant other at home: No Do you presently have visiting nurse or other home services: No Alcohol intake: current Alcohol intake frequency: a few times a month Patient Tobacco Use Status: Never used Tobacco e-Cigarette/Vaping Use: Never Used Second Hand Smoke Exposure: Yes Substance Use Type: Marijuana Advance Directives: No Advance Directives Information Provided: Yes Do you have a plan to hurt others: No Plan service: No Current occupational status: employed 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 Cognitive needs: No Hearing needs: No Vision needs: Yes (Reading Glasses) Meds Allergies Allergy/AdvReac Type Severity Reaction Status Date / Time No Known Allergies (No Known Allergy Verified 01/29/25 02:14 Allergies*) Home Medications ?Medication ?Instructions ?Recorded ?Confirmed ?Last Taken ?Type multivitamin with minerals-folic 1 tab PO DAILY 01/29/25 01/28/25 History acid 200 mcg chewable tablet (Multivitamin Gummies) Physical Exam 2 Vital Signs and Narrative: Vital Signs: Last Vital Signs Temp 98.2 F 01/29/25 06:10 Pulse 60 01/29/25 06:10 Resp 18 01/29/25 06:10 BP 109/73 01/29/25 06:10 Pulse Ox 98 01/29/25 06:10 O2 Del Method Room Air 01/29/25 06:10 BMI result Body Mass Index 24.7 Const: Other: appears uncomfortable General: cooperative, alert and awake Nutritional Appearance: average body habitus Orientation/consciousness: patient oriented x3 Resp: Effort & Inspection: normal respiratory effort, no respiratory distress and no use of accessory muscles Cardio: Rate: regular rate GI: Inspection: No distended Palpation (GI): Soft to palpation Neuro: General: patient oriented x3, moves all extremities and CN's II-XI intact bilaterally Results Labs 01/29/25 02:40 01/29/25 04:28 Labs: Laboratory Results - last 24 hr 01/29/25 01/29/25 01/29/25 02:40 04:28 06:12 MCV 84.3 MCH 30.1 MCHC 35.7 RDW 12.0 Plt Count 202 MPV 9.7 Immature Gran % (Auto) 0.2 Neut % (Auto) 68.1 Lymph % (Auto) 19.5 L [place] % (Auto) 11.8 H Eos % (Auto) 0.3 Baso % (Auto) 0.1 Lymph # (Auto) 2.3 [place] # (Auto) 1.4 H Eos # (Auto) 0.0 Baso # (Auto) 0.0 Abs Immat Gran (auto) 0.02 Absolute Neuts (auto) 7.9 Absolute Nucleated RBC 0.000 Nucleated RBC % (auto) 0.0 Anion Gap 13 11 L Estim Creat Clear Calc 51.9 56.6 Estimated GFR 43 48 Random Glucose 101 101 Calcium 9.0 8.2 L D Total Bilirubin 0.8 AST 22 ALT 11 Alkaline Phosphatase 68 Total Protein 6.9 Albumin 4.0 Urine Color Yellow Urine Appearance Clear Urine pH 5.5 Ur Specific [place] >= 1.030 H Urine Protein Trace Urine Glucose (UA) Negative Urine Ketones Negative Urine Blood Trace H Urine Nitrite Negative Ur Leukocyte Esterase Negative Urine RBC 0-2 Urine WBC 0-5 Ur Squamous Epith Cells 0-2 Urine Bacteria None Seen Hyaline Casts 0-2 Assessment and Plan (1) ARMEN (acute kidney injury): Status: Acute Plan This is a 54-year-old male with recent right hernia repair who presents with right flank pain found to have right side kidney stone with hydro and ARMEN ARMEN due to moderate right hydroureteronephrosis secondary to ureteralvesicular stone UA negative for infection IVF, flomax, pain control urology consult NPO at midnight follow renal function dvt ppx - mechanical devices, early ambulation Patient will likely require 2 midnight stay in the hospital for management of ARMEN requiring IV fluids and obstructing stone requiring specialist evaluation Quality Stroke Does the patient have a stroke diagnosis?: No VTE Prior VTE?: No VTE Risk Level:: Medical - moderate - high VTE Device Contraindication: N/A - Device Ordered VTE Drug Contraindication: Treatment Not Indicated
[2025-01-29] MEDS: Lactated Ringers 1,000 ML 150 ML IVCONT ×2 (08:34→15:06)
--- NOTE | 2025-01-29 09:35 | PHA.MEDREC ---
Addendum entered by Rojas Heller PharmD 01/29/25 09:43: reviewed Original Note: Pharmacy Consult ? Medication Reconciliation Pharmacy has completed the medication reconciliation. Patient had his RX bottles with him. Patient states he had his medications yesterday.
--- NOTE | 2025-01-29 10:48 | P.CNUR_ITS ---
History of Present Illness Consult details Consult date: 01/29/25 Narrative: ARMEN Right hydro secondary to 2-3 mm R. UVJ stone Review of Systems 2 Review of Systems: Yes all other systems are reviewed and are negative Constitutional: Constitutional: Reports no additional constitutional complaints Eyes: Eyes: Reports no additional eye complaints ENT: Reports system reviewed and no additional complaints, except as documented Cardiovascular: Cardiovascular: Reports no additional cardiovascular complaints Respiratory: Respiratory: Reports no additional respiratory complaints Gastrointestinal: Gastrointestinal: Reports no additional gastrointestinal complaints Genitourinary: Genitourinary: Reports as per HPI Musculoskeletal: Musculoskeletal: Reports no additional musculoskeletal complaints Integumentary/Breasts: Skin/Breast: Reports system reviewed and no additional complaints, except as docu Neurologic: Reports system reviewed and no additional complaints, except as documented Psychiatric: Psychiatric: Reports no additional psychiatric complaints Endocrine: Endocrine: Reports no additional endocrine complaints Hematologic/Lymphatic: Hematologic/Lymphatic: Reports no additional hematologic/lymphatic complaints Allergic/Immunologic: Allergic/Immunologic: Reports no additional allergic/immunologic complaints PMFSH Past Medical History Medical History Kidney stones Heartburn Hemorrhoids Family History Family History Mother Cancer Sister HTN (hypertension) Surgical History Surgical History H/O right inguinal hernia repair (12/13/24) Hx of cystoscopy H/O colonoscopy History of appendectomy Social History Social History Housing: House Are you a primary residential care officer to a significant other at home: No Do you presently have visiting nurse or other home services: No Alcohol intake: current Alcohol intake frequency: a few times a month Patient Tobacco Use Status: Never used Tobacco e-Cigarette/Vaping Use: Never Used Second Hand Smoke Exposure: Yes Substance Use Type: Marijuana Advance Directives: No Advance Directives Information Provided: Yes Do you have a plan to hurt others: No Plan service: No Current occupational status: employed 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 Cognitive needs: No Hearing needs: No Vision needs: Yes (Reading Glasses) Meds Allergies Allergy/AdvReac Type Severity Reaction Status Date / Time No Known Allergies (No Known Allergy Verified 01/29/25 02:14 Allergies*) Active Medications: Current Medications Acetaminophen (Acetaminophen 325 Mg Tablet) 650 mg PO Q6H PRN PRN Reason: Pain, Mild 1-3,fever,headache Calcium Carbonate (Calcium Carbonate 750 Mg Tab.Chew) 750 mg PO Q4H PRN PRN Reason: Heartburn Lactated Ringer's (Lr) 1,000 mls @ 150 mls/hr IVCONT .Q6H40M [facility] Last Admin: 01/29/25 08:34 Dose: 150 mls/hr Magnesium Hydroxide (Milk Of Magnesia 30 Ml Oral.Susp) 30 ml PO DAILY PRN PRN Reason: Constipation Melatonin (Melatonin 3 Mg Tablet) 6 mg PO BEDTIME PRN PRN Reason: Insomnia Morphine Sulfate (Morphine Sulfate 2 Mg/Ml Cartridge) 2 mg IVPUSH Q4H PRN; Protocol PRN Reason: Pain, Severe (Pain Scale 7-10) Ondansetron HCl (Ondansetron Hcl 4 Mg/2 Ml Vial) 4 mg IVPUSH Q8H PRN PRN Reason: Nausea and Vomiting Oxycodone HCl (Oxycodone Hcl Immed Release 5 Mg Tablet) 5 mg PO Q6H PRN PRN Reason: Pain, Moderate(Pain Scale 4-6) Prednisone (Prednisone 20 Mg Tablet) 20 mg PO DAILY [facility] Last Admin: 01/29/25 09:57 Dose: 20 mg Sodium Chloride (0.9 % Sodium Chloride Flush 3 Ml Syringe) 3 ml IVFLUSH QSHIFT [facility] Last Admin: 01/29/25 08:36 Dose: Not Given Tamsulosin HCl (Tamsulosin Hcl 0.4 Mg Capsule) 0.4 mg PO DAILY [facility] Last Admin: 01/29/25 09:57 Dose: 0.4 mg Home Medications ?Medication ?Instructions ?Recorded ?Confirmed ?Last Taken ?Type multivitamin with minerals-folic 1 tab PO DAILY 01/29/25 01/28/25 History acid 200 mcg chewable tablet (Multivitamin Gummies) Physical Exam 2 Vital Signs: Vital Signs: Last Vital Signs Temp 98.2 F 01/29/25 06:10 Pulse 60 01/29/25 06:10 Resp 18 01/29/25 06:10 BP 109/73 01/29/25 06:10 Pulse Ox 98 01/29/25 06:10 O2 Del Method Room Air 01/29/25 06:10 BMI result Body Mass Index 24.7 Results Labs 01/29/25 02:40 01/29/25 04:28 Labs: Abnormal lab results 01/29/25 01/29/25 01/29/25 Range/Units 02:40 04:28 06:12 WBC 11.6 H (4.8-10.8) X10*3/uL RBC 3.69 L (4.60-5.80) X10*6/uL Hgb 11.1 L (14.0-18.0) g/dl Hct 31.1 L (42.0-52.0) % Lymph % (Auto) 19.5 L (20-40) % [place] % (Auto) 11.8 H (2-11) % [place] # (Auto) 1.4 H (0.1-1.2) X10*3/uL Anion Gap 11 L (12-20) BUN 23 H 22 H (9-16) mg/dL Creatinine 1.66 H 1.52 H (0.5-1.4) mg/dL Calcium 8.2 L D (8.4-10.2) mg/dL Ur Specific [place] >= 1.030 H (1.005-1.025) Urine Blood Trace H (Negative) Short CBC 01/29/25 Range/Units 02:40 WBC 11.6 H (4.8-10.8) X10*3/uL Hgb 11.1 L (14.0-18.0) g/dl Hct 31.1 L (42.0-52.0) % Plt Count 202 (160-400) X10*3/uL BMP 01/29/25 01/29/25 02:40 04:28 Sodium 141 139 Potassium 3.6 3.6 Chloride 107 107 Carbon Dioxide 25 25 BUN 23 H 22 H Creatinine 1.66 H 1.52 H Calcium 9.0 8.2 L D Liver Function 01/29/25 Range/Units 02:40 Total Bilirubin 0.8 (0.0-1.0) mg/dL AST 22 (5-37) U/L ALT 11 (0-40) U/L Alkaline Phosphatase 68 (39-117) U/L Albumin 4.0 (3.5-5.0) g/dL Urine 01/29/25 Range/Units 06:12 Urine Color Yellow Urine Appearance Clear Urine pH 5.5 (5.0-9.0) Ur Specific [place] >= 1.030 H (1.005-1.025) Urine Protein Trace (Neg-Trace) mg/dL Urine Glucose (UA) Negative (Negative) mg/dL All other labs normal. Imaging Abdomen CT scan report/results: report reviewed and image reviewed CT scan - pelvis: report reviewed and image reviewed Additional studies: Date of Service: 01/29/25 CLINICAL HISTORY: R Flank Pain; Recently Dx Ureterolithiasis CT abdomen and pelvis with contrast Comparison: 01/26/2025 Findings: No consolidation or effusion. The gallbladder and solid organs are within normal limits. There is moderate right hydroureteronephrosis secondary to a 2 mm ureterovesicular junction calculus. No bowel obstruction, pneumoperitoneum, or pneumatosis. Pelvic contents unremarkable. Normal appendix. There is a right inguinal hernia. No acute fracture. IMPRESSION: Moderate right hydroureteronephrosis secondary to a 2 mm ureterovesicular junction calculus.. Assessment and Plan (1) Ureterolithiasis: Status: Acute (2) ARMEN (acute kidney injury): Status: Acute (3) Obstructive uropathy: Status: Acute (4) Hydronephrosis, right: Status: Acute Plan IV fluid hydration Flomax Strain urine NPO past midnight Procedures Date of Service Date of Service: 01/29/25
--- NOTE | 2025-01-29 11:06 | PC.NURSE ---
urine strainer provided to patient- pt verbalizes understanding to urinate into strainer to potentially catch stone
--- NOTE | 2025-01-29 14:15 | PC.NURSE ---
MD oJanna Clark notified of calculus specimen collection via [employer]
[2025-01-29 15:04] VITALS: BP 122/72; PULSE 88; RESP 16; TEMP 36.7; O2SAT 100
[2025-01-29 19:02] LABS: Anion Gap 14 (12-20); Blood Urea Nitrogen 21 mg/dL (9-16); Calcium 8.7 mg/dL (8.4-10.2); Carbon Dioxide 26 mmol/L (22-29); Chloride 105 mmol/L (96-108); Creatinine Clr Calc Pharmacy 70.0; Estimated Glomerular Filt Rate > 60; Potassium 4.5 mmol/L (3.3-5.1); Sodium 140 mmol/L (135-145)
--- NOTE | 2025-01-30 12:04 | PM.DS ---
DS: Providers Provider Date of Service: 01/29/25 Date of admission: 01/29/25 07:24 Date of discharge: 01/30/25 Primary care physician: YUNIER Vang Consults: 01/29/25 07:27 Consult to Urology Routine Consulting [place] [facility] [place] Reason for consultation: UPJ stone/hydro/ARMEN Has provider been notified: No Attending physician on discharge: Sherrill Betancourt Discharging clinician: Sherrill Betancourt DS: Diagnosis Discharge Diagnosis (1) ARMEN (acute kidney injury): Status: Acute DS: Summary Hospital Course Hospital Course: Date of service and discharge: 01/29/25 HPI:54 year old male who presents to the ED with right flank pain. He was initially seen in the emergency department on January 26 with right flank pain at that time he was diagnosed to have a right-sided kidney stone. He was discharged home with Flomax, prednisone and pain medication. He has been taking medication without any improvement in his symptoms which prompted him to return to the emergency department for evaluation. He denies any associated fever, nausea, vomiting, dysuria. CT scan of the abdomen and pelvis was repeated which showed moderate right hydroureteronephrosis secondary to 2 mm ureterovesicular junction calculus, renal function noted to have worsened with a creatinine of 1.66. Case discussed with urology, patient will be admitted to the medical service. Hospital course: 54-year-old male came with right hydro ureteronephrosis secondary to ureteralvesicular stone: UA negative, treated with IV fluid, Flomax, pain control seems to be improved significantly, passed the stone, ARMEN also improved significantly. Patient will be going home with p.r.n. Tylenol and Flomax limited supply. Above management discussed with the patient detail length he understand and in agreement with the above plan, time spent 40 minute. All questions answered. Time Attestation Total time managing care of this patient today: 40 mintues. Discharge Coordination Time (in mins): 40min Quality: Safe Use of Opioids Does Pt have an Active Cancer Diagnosis on the Problem List?: No Quality: Stroke Does the patient have a stroke diagnosis?: No Physical Exam Exam: Exam: Appearance: Alert.? Oriented X3.? cvs: rrr, [id number] , no murmur res: clear to auscultation ,no rhonchii or wheezing abd: no rebound or guarding ,nt, bs present. ext pulses present , no cyanosis. neuro: axo3 , nonfocal. Vital Signs: Vital Signs: Last Vital Signs Temp 98.1 F 01/29/25 15:04 Pulse 88 01/29/25 15:04 Resp 16 01/29/25 15:04 BP 122/72 01/29/25 15:04 Pulse Ox 100 01/29/25 15:04 O2 Del Method Room Air 01/29/25 15:04 BMI result Body Mass Index 24.7 DS: Data Data Completed and Pending Labs on day of discharge: Laboratory Results - last 24 hr 01/29/25 18:40 Sodium 140 Potassium 4.5 D Chloride 105 Carbon Dioxide 26 Anion Gap 14 BUN 21 H Creatinine 1.23 Estim Creat Clear Calc 70.0 Estimated GFR > 60 Random Glucose 121 H Calcium 8.7 D Discharge Plan Discharge Anticipated Discharge Date/Time: 01/29/25 19:37 Patient Disposition: Home, Self-Care Discharge Diagnosis: Acute kidney injury due to moderate right hydronephrosis secondary to ureteral vesicular renal calculi Referrals: Joaquín Michelle FNP-C [Primary Care Provider, Internal Medicine] - 1 Week Discharge Medications: Continued tamsulosin 0.4 mg capsule 0.4 mg PO DAILY Qty: 14 0RF multivit with min-folic acid [Multivitamin Gummies] 200 mcg Tablet,Chewable 1 tab PO DAILY Discontinued ibuprofen 600 mg tablet 600 mg PO Q6H PRN (Reason: pain) Qty: 30 0RF prednisone 20 mg tablet 20 mg PO DAILY Qty: 7 0RF oxycodone 5 mg tablet 5 mg PO Q6H PRN (Reason: severe pain (scale score 7-10)) Qty: 8 0RF Rx Instructions: Partial Fill upon patient request. Discharge Orders: Discharge Order (Routine); Ordered 01/29/25 Ordered By: Jenaro Natarajan Diet: Advance to usual diet Activity on Discharge: As tolerated Stand Alone Forms: Patient Portal Discharge page, Work/School Release Print Language: Ecuadorean Care Plan Goals: Follow with Urology 02/07/2025 Health Concerns: Obstructive uropathy Plan of Treatment: Tylenol p.o. as needed Tamsulosin 0.4 mg p.o. daily Assessment: Obstructive uropathy. Patient Instructions: Kidney Stones (GEN) Discharge Date/Time: 01/29/25 20:02
== END 2025-01-29 20:02 | disposition home or self-care (01) | DRG 694 ==
LOC: HO.ED 07:07 → HO.EDOVER 07:24 → HO.S3 19:24
PROVIDERS: Physician Assistant; Urology; Admitting Provider Physician Assistant Medical; Emergency Provider Emergency Medicine; Visit Provider Internal Medicine
DX: N13.2 Hydronephrosis with renal and ureteral calculous obstruction (principal); N17.9 Acute kidney failure, unspecified; Z79.899 Other long term (current) drug therapy
CPT/HCPCS: 36415; 74177; 80048; 80053; 81001; 82365; 85025; 99221; 99285; J1171; J1885; J7120; Q9967

== ENCOUNTER → 2025-01-29 02:31 | Outpatient (BNV) | payer OTHER, SELFPAY | PROVIDERS: Emergency Provider Emergency Medicine; Visit Provider Specialist | DX: N13.2 Hydronephrosis with renal and ureteral calculous obstruction (principal) | CPT/HCPCS: 74177 ==

== ENCOUNTER → 2025-01-29 07:24 | Outpatient (BNV) | payer OTHER, SELFPAY | PROVIDERS: Admitting Provider Physician Assistant Medical; Emergency Provider Emergency Medicine; Visit Provider Urology | DX: N20.1 Calculus of ureter (principal); N17.9 Acute kidney failure, unspecified; N13.9 Obstructive and reflux uropathy, unspecified; N13.30 Unspecified hydronephrosis | CPT/HCPCS: 99222 ==

== ENCOUNTER → 2025-01-29 07:24 | Outpatient (BNV) | payer OTHER, SELFPAY | PROVIDERS: Admitting Provider Physician Assistant Medical; Emergency Provider Emergency Medicine; Visit Provider Physician Assistant Medical | DX: N17.9 Acute kidney failure, unspecified (principal) | CPT/HCPCS: 99239 ==

== ENCOUNTER 2025-02-07 15:20 | Outpatient (AMB) | payer OTHER, SELFPAY ==
--- NOTE | 2025-02-07 15:21 | A.OFFVIS_ITS ---
Intake Visit Reasons: kidney stones Intake Note: New Patient is present for KIDNEY STONES Urology Rx:TAMSULOSIN Imaging : Abd CT done 01/29/25 Blood Thinners:none Policy Service Coordinator Required: No Accompanied by: Self / Same As Patient Allergies No Known Allergies (No Known Allergies*) Allergy (Verified 02/07/25 15:22) HPI Comments Details: Petros is a pleasant male. He is a patient of Dr. Michelle. He seen for the following urologic conditions - nephrolithiasis PFSH Medical History (Updated 02/07/25 @ 16:01 by Pino Hammer MD) Kidney stones Heartburn Hemorrhoids Surgical History (Updated 02/03/25 @ 00:01 by Monica Abdi) H/O right inguinal hernia repair (12/13/24) Hx of cystoscopy H/O colonoscopy History of appendectomy Family History Mother Cancer Sister HTN (hypertension) Social History Housing: House Are you a primary pet caregiver to a significant other at home: No Do you presently have visiting nurse or other home services: No Alcohol intake: current Alcohol intake frequency: a few times a month Patient Tobacco Use Status: Never used Tobacco e-Cigarette/Vaping Use: Never Used Second Hand Smoke Exposure: Yes Substance Use Type: Marijuana service: No Current occupational status: employed 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 Cognitive needs: No Hearing needs: No Vision needs: Yes (Reading Glasses) Results AMB Urinalysis, Automated UA Leukoctes 0 Do/uL Last Edit by YANIRA Amaya on 02/07/25 16:34 UA Nitrite Last Edit by YANIRA Amaya on 02/07/25 16:34 UA Urobilinogen 0.2 mg/dL Last Edit by YANIRA Amaya on 02/07/25 16:3 4 UA Protein 0 mg/dL Last Edit by YANIRA Amaya on 02/07/25 16:34 UA pH 7.0 Last Edit by YANIRA Amaya on 02/07/25 16:34 UA Blood 25 Bobby/uL Last Edit by YANIRA Amaya on 02/07/25 16:34 UA Specific [place] 1.010 Last Edit by YANIRA Amaya on 02/07/25 16: 34 UA Ketone Last Edit by YANIRA Amaya on 02/07/25 16:34 UA Bilirubin 0 mg/dL Last Edit by YANIRA Amaya on 02/07/25 16:34 UA Glucose 0 mg/dL Last Edit by YANIRA Amaya on 02/07/25 16:34 Results Reviewed Results Reviewed: Laboratory Last Values Urine pH (Auto) 7.0 02/07/25 16:33 Specific [place] (Auto) 1.010 02/07/25 16:33 Urine Protein (Auto) 0 mg/dL 02/07/25 16:33 Glucose (UA)(Auto) 0 mg/dL 02/07/25 16:33 Urine Blood (Auto) 25 Bobby/uL 02/07/25 16:33 Urine Bilirubin (Auto) 0 mg/dL 02/07/25 16:33 Urine Urobilinogen (Auto) 0.2 mg/dL 02/07/25 16:33 Leukocyte Esterase (Auto) 0 Do/uL 02/07/25 16:33 Assessment & Plan Assessment & Plan (1) Kidney stones: Code(s): N20.0 - Calculus of kidney Category: Medical Orders: Orders AMB Urinalysis Automated Today Z13.9 - Encounter for screening, unspecified Coding Diagnoses Kidney stones N20.0
== END 2025-02-07 16:04 | disposition home or self-care (01) ==
LOC: HO.HUSH 15:21
PROVIDERS: Visit Provider Urology
DX: Z13.9 Encounter for screening, unspecified (principal)

== ENCOUNTER → 2025-02-07 15:20 | Outpatient (BNVA) | payer OTHER, SELFPAY | PROVIDERS: Visit Provider Urology | DX: N20.0 Calculus of kidney (principal) | CPT/HCPCS: 81003 ==